=== PATIENT | female | born 1965 | race Caucasian/White ===

== ENCOUNTER 2016-08-27 16:38 | Emergency (ER) | payer MEDICAID, OTHER ==
[~2016-08-27] VITALS: Ht 167.6 cm; Wt 96.0 kg
[~2016-08-27 16:38] MED LIST: 1-ME1LIQ PO; ADVAI250I INH; ALBU8I INH; BACL10TA PO; BENZ1TAB PO; CLON1 PO; DULO1CAP3 PO; GABA300C3 PO; MIRA25TA PO; PERC7.5T13 PO; SYNT112T PO; TEMA30CA PO; TRAZ50TA12 PO; VENL-39 PO; VESI5TAB PO
[2016-08-27 16:47] VITALS: BP 139/79; PULSE 83; RESP 24; TEMP 98.4; O2SAT 94
[2016-08-27 16:53] VITALS: BP 139/79; PULSE 84; RESP 24; TEMP 98.4; O2SAT 95
[2016-08-27] MEDS ORDERED: LEVO50TA4 PO (17:07)
[2016-08-27] MEDS ORDERED: LAMO25 PO (17:07)
[2016-08-27] MEDS ORDERED: GABA300C5 PO (17:07)
[2016-08-27] MEDS ORDERED: HYDR50TA94 PO (17:07)
[2016-08-27] MEDS ORDERED: LORazepam 2 MG/ML VIAL IV PUSH ONE (17:15)
[2016-08-27] MEDS ORDERED: oxyCODONE/ACETAMINOPHEN 5 MG/325 MG TAB PO ONE (17:15)
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
[2016-08-27 17:41] LABS: AUTOMATED NEUTROPHIL # 6.5 TH/MM3 (1.8-7.7); BASOPHIL # 0.1 TH/MM3 (0-0.2); BASOPHIL % 0.7 % (0.0-2.0); EOSINOPHIL # 0.2 TH/MM3 (0-0.4); EOSINOPHIL % 1.6 % (0.0-4.0); HEMATOCRIT 38.3 % (35.0-46.0); HEMO FLAGS DIFF FINAL; LYMPH % 37.1 % (9.0-44.0); LYMPHOCYTE # 4.6 TH/MM3 (1.0-4.8); MEAN CELL VOLUME 69.5 FL (80.0-100.0); MEAN CORPUSCULAR HEMOGLOBIN 22.5 PG (27.0-34.0); MEAN CORPUSCULAR HGB CONC 32.4 % (32.0-36.0); NEUT % 52.6 % (16.0-70.0); PLATELET COUNT 377 TH/MM3 (150-450); WHITE BLOOD COUNT 12.3 TH/MM3 (4.0-11.0)
[2016-08-27 17:45] LABS: ALT (GPT) 38 U/L (10-53); ANION GAP 7 MEQ/L (5-15); AST (GOT) 30 U/L (15-37); BICARBONATE 30.9 MEQ/L (21.0-32.0); BLOOD UREA NITROGEN 16 MG/DL (7-18); CHLORIDE 99 MEQ/L (98-107); GLOMERULAR FILTRATION RATE 51 ML/MIN (>89); POTASSIUM 4.2 MEQ/L (3.5-5.1); SODIUM (NA) 137 MEQ/L (136-145)
[2016-08-27 17:55] LABS: ALKALINE PHOSPHATASE 114 U/L (45-117); TOTAL BILIRUBIN ADULT 0.3 MG/DL (0.2-1.0)
[2016-08-27 18:10] LABS: ACETAMINOPHEN LESS THAN 2.0 MCG/ML (10.0-30.0)
[2016-08-27 18:22] LABS: BLOOD, URINE TRACE (NEG); COMMENT (UR) CULT NOT INDICATED; CULTURE IF INDICATED CULT NOT INDICATED; GLUCOSE,URINE NEG (NEG); KETONE, URINE NEG (NEG); NITRITE,URINE NEG (NEG); PH, URINE 5.5 (5.0-8.5); SQUAMOUS EPITHELIAL CELL URINE 3 /hpf (0-5); URINE COLOR YELLOW (YELLW/STRAW)
[2016-08-27 18:29] LABS: AMPHETAMINE, URINE NEG (NEG); BARBITURATES, URINE NEG (NEG); COCAINE, URINE POS (NEG)
[2016-08-27 19:04] VITALS: BP 132/81; PULSE 80; RESP 20; O2SAT 95
[2016-08-27 19:44] VITALS: BP 142/81; PULSE 79; RESP 20; TEMP 99.4; O2SAT 97
[2016-08-27 23:01] VITALS: BP 116/66; PULSE 70; RESP 16; O2SAT 98
[2016-08-28 02:17] VITALS: BP 128/73; PULSE 69; RESP 20
[2016-08-28 06:37] VITALS: BP 135/71; PULSE 75; RESP 18
[2016-08-28] MEDS ORDERED: LORazepam 1 MG TAB PO ONE (08:30)
[2016-08-28] MEDS ORDERED: GABAPENTIN 300 MG CAP PO ONE (08:30)
[2016-08-28] MEDS ORDERED: oxyCODONE/ACETAMINOPHEN 5 MG/325 MG TAB PO ONE (08:30)
[2016-08-28 10:10] VITALS: BP 122/78; PULSE 71; RESP 18; O2SAT 98
[2016-08-28] MEDS ORDERED: HYDR-3366 PO (11:19)
[2016-08-28] MEDS ORDERED: LORA-474 PO (11:19)
[2016-08-28] MEDS ORDERED: GABA300C5 PO (11:19)
[2016-08-28] MEDS ORDERED: SOMA350T PO (11:20)
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
== END 2016-08-28 12:40 | disposition home or self-care (01) ==
LOC: NEPC 16:38 → NEPJ 08-28 12:40
DX: F25.9 Schizoaffective disorder, unspecified (principal); F41.9 Anxiety disorder, unspecified; G89.29 Other chronic pain; E66.9 Obesity, unspecified; F31.89 Other bipolar disorder; J44.9 Chronic obstructive pulmonary disease, unspecified; E03.9 Hypothyroidism, unspecified; I10 Essential (primary) hypertension; J45.909 Unspecified asthma, uncomplicated
CPT/HCPCS: 80053; 80307; 81001; 83690; 84443; 85025; 96374; 99284; J2060

== ENCOUNTER 2017-02-23 16:48 | Emergency (ER) | payer MEDICAID, OTHER ==
[~2017-02-23] VITALS: Ht 167.6 cm; Wt 113.0 kg
[~2017-02-23 16:48] MED LIST changes: -1-ME1LIQ PO; -ADVAI250I INH; -ALBU8I INH; -BACL10TA PO; -BENZ1TAB PO; -CLON1 PO; -GABA300C3 PO; +GABA300C5 PO; +HYDR-3366 PO; +HYDR50TA94 PO; +LAMO25 PO; +LEVO50TA4 PO; +LORA-474 PO; -MIRA25TA PO; -PERC7.5T13 PO; +SOMA350T PO; -SYNT112T PO; -TEMA30CA PO; -VENL-39 PO; -VESI5TAB PO
[2017-02-23 16:59] VITALS: BP 114/70; PULSE 82; RESP 18; TEMP 98.5; O2SAT 95
[2017-02-23] MEDS ORDERED: CYMB60CA PO (17:06)
[2017-02-23] MEDS ORDERED: CLON1 PO ×2 (17:06)
[2017-02-23 17:12] VITALS: BP 109/73; PULSE 80; RESP 20; O2SAT 99
--- NOTE | 2017-02-23 17:33 | PD ---
HPI . Moreno Act Chief Complaint: Psychiatric Symptoms Time Seen by Provider: 17:03 Travel History International Travel<30 days: No Contact w/Intl Traveler<30days: No Traveled to known affect area: No History of Present Illness HPI This patient presents to us by EVAC as a Moreno Act. The Moreno Act states that she has told couple of different people that she is depressed and that she will kill herself if she does not get her pain medication. The patient reports that she is status post a hip replacement on January 18. She was prescribed pain medication following the hip replacement. She has reportedly been in a rehabilitation facility until a couple of weeks ago. His chart from the rehabilitation facility with prescriptions for pain medication and psychiatric medication. The patient reports that she is out of her pain medication. She describes her pain as severe. It is exacerbated by movement of her hip. PFSH Past Medical History Hx Anticoagulant Therapy: Yes Arthritis: Yes Asthma: Yes Autoimmune Disease: No Blood Disorders: No Bipolar Disorder: Yes Anxiety: Yes Depression: Yes Heart Rhythm Problems: No Cancer: No Cardiovascular Problems: Yes High Cholesterol: No Chemotherapy: No Chest Pain: No Congestive Heart Failure: No COPD: Yes Cerebrovascular Accident: No Diabetes: No Diminished Hearing: No Endocrine: Yes (HYPOTHROIDISM) Gastrointestinal Disorders: Yes (C/O STOMACH ULCER) GERD: No Glaucoma: No Genitourinary: Yes (INCONTINENCE) Headaches: No Hepatitis: Yes (C) Hiatal Hernia: No Hypertension: Yes Immune Disorder: No Implanted Vascular Access Dvce: No Insomnia: Yes Kidney Stones: No Musculoskeletal: Yes (LOWER BACK PAIN) Neurologic: No Psychiatric: Yes (Schizoaffective Disorder) Reproductive: No Respiratory: Yes Immunizations Current: Yes Migraines: No Myocardial Infarction: No Radiation Therapy: No Renal Failure: No Schizophrenia: Yes Seizures: No Sickle Cell Disease: No Sleep Apnea: No Thyroid Disease: Yes (HYPO) Ulcer: Yes (STOMACH ULCER) Tetanus Vaccination: > 5 Years Influenza Vaccination: No ?: Not Menopausal: Yes : 1 Para: 1 Miscarriage: 0 : 0 Dilation and Curettage (D&C): Yes Past Surgical History Abdominal Surgery: No AICD: No Appendectomy: No Arteriovenous Shunt: No Cardiac Surgery: No Cholecystectomy: No Ear Surgery: No Endocrine Surgery: No Eye Surgery: No Genitourinary Surgery: No Gynecologic Surgery: No Insulin Pump: No Joint Replacement: No Neurologic Surgery: No Oral Surgery: No Pacemaker: No Thoracic Surgery: No Other Surgery: Yes (HX OF CHIN AND NOSE IMPLANTS, BOTH KNEES REPLACEMENT) Social History Alcohol Use: No Tobacco Use: Yes (2 PPD) Substance Use: Yes Allergies-Medications (Allergen,Severity, Reaction): Coded Allergies: haloperidol (Unverified Allergy, Severe, PARADOXICAL EFFECT, 02/23/17) risperidone (Unverified Allergy, Severe, PARADOXICAL EFFECT, 02/23/17) thiothixene (Unverified Allergy, Severe, PARADOXICAL EFFECT, 02/23/17) trazodone (Unverified Allergy, Unknown, 02/23/17) Reported Meds & Prescriptions Reported Meds & Active Scripts Active Soma (Carisoprodol) 350 Mg Tab 350 Mg PO TID PRN Gabapentin 300 Mg Cap 300 Mg PO TID Duloxetine DR (Duloxetine HCl) 60 Mg Capdr 60 Mg PO DAILY [address] (Duloxetine HCl) 60 Mg Capdr 60 Mg PO DAILY Klonopin (Clonazepam) 1 Mg Tab 1 Mg PO TID Klonopin (Clonazepam) 1 Mg Tab 1 Mg PO BID Hydroxyzine HCl 50 Mg Tab 50 Mg PO TID Levothyroxine (Levothyroxine Sodium) 50 Mcg Tab 50 Mcg PO DAILY Lamictal (Lamotrigine) 25 Mg Tab 25 Mg PO BID Review of Systems Except as stated in HPI: all other systems reviewed are Neg Musculoskeletal: Positive: Arthralgias Psychiatric: Positive: Depression, Suicidal Ideations, Substance Abuse Physical Exam Narrative GENERAL: Slurred speech. Lateral and belligerent. Demanding pain medication on multiple occasions. She was found to be hiding a bottle of mixed pills in her diaper. SKIN: Warm and dry. She has a well-healed surgical scar on the right hip with no signs of infection. HEAD: Normocephalic/atraumatic. EYES: Pupils are equal. Extraocular movements are intact. NECK: Normal range of motion. CARDIOVASCULAR: Regular rate and rhythm. RESPIRATORY: Nonlabored respirations. MUSCULOSKELETAL: Atraumatic. There is no resistance to log rolling of the hip. NEUROLOGICAL: Nonfocal. PSYCHIATRIC: Angry. Belligerent. Probably intoxicated. Data Data Last Documented VS Vital Signs Date Time Temp Pulse Resp B/P (MAP) Pulse Ox O2 Delivery O2 Flow Rate FiO2 02/23/17 17:12 80 20 109/73 (85) 99 Room Air 02/23/17 16:59 98.5 Orders Orders Complete Blood Count With Diff (02/23/17 17:04) Comprehensive Metabolic Panel (02/23/17 17:04) Cath For Specimen (02/23/17 17:04) Psych Screen (02/23/17 17:04) Drug Screen, Random Urine (02/23/17 17:04) Alcohol (Ethanol) (02/23/17 17:04) Salicylates (Aspirin) (02/23/17 17:04) Tylenol (Acetaminophen) (02/23/17 17:04) Labs Laboratory Tests Test 02/23/17 17:05 White Blood Count 10.4 TH/MM3 Red Blood Count 4.31 MIL/MM3 Hemoglobin 10.4 GM/DL Hematocrit 32.2 % Mean Corpuscular Volume 74.6 FL Mean Corpuscular Hemoglobin 24.2 PG Mean Corpuscular Hemoglobin Concent 32.4 % Red Cell Distribution Width 17.0 % Platelet Count 354 TH/MM3 Mean Platelet Volume 8.0 FL Neutrophils (%) (Auto) 52.7 % Lymphocytes (%) (Auto) 35.1 % Monocytes (%) (Auto) 8.9 % Eosinophils (%) (Auto) 2.8 % Basophils (%) (Auto) 0.5 % Neutrophils # (Auto) 5.5 TH/MM3 Lymphocytes # (Auto) 3.6 TH/MM3 Monocytes # (Auto) 0.9 TH/MM3 Eosinophils # (Auto) 0.3 TH/MM3 Basophils # (Auto) 0.1 TH/MM3 CBC Comment DIFF FINAL Differential Comment Blood Urea Nitrogen 15 MG/DL Creatinine 1.03 MG/DL Random Glucose 91 MG/DL Total Protein 7.0 GM/DL Albumin 3.5 GM/DL Calcium Level 9.1 MG/DL Alkaline Phosphatase 104 U/L Aspartate Amino Transf (AST/SGOT) 21 U/L Alanine Aminotransferase (ALT/SGPT) 28 U/L Total Bilirubin 0.3 MG/DL Sodium Level 139 MEQ/L Potassium Level 3.1 MEQ/L Chloride Level 99 MEQ/L Carbon Dioxide Level 36.8 MEQ/L Anion Gap 3 MEQ/L Estimat Glomerular Filtration Rate 56 ML/MIN Salicylates Level 6.8 MG/DL Acetaminophen Level LESS THAN 2.0 MCG/ML Ethyl Alcohol Level LESS THAN 3 MG/DL MDM Medical Decision Making Medical Screen Exam Complete: Yes Emergency Medical Condition: Yes Differential Diagnosis Differential diagnosis includes but is not limited to depression with suicidal gesture, suicide attempt, suicidal ideation, attention seeking behavior. Narrative Course This patient presents to us as a Moreno Act. She is reportedly suicidal. She was found to be hiding a mixed bottle of medication in her diaper. She has reportedly been drinking vodka. She is belligerent and loud. Medical clearance labs have been drawn. I will follow-up on them. However, this patient does not have any apparent acute medical problems. Her problems appear to be psychiatric. She is disruptive to the department. She will be transported to the [facility]. This patient has been evaluated by the psych screening nurse practitioner. The Moreno Act has been lifted. The patient will be discharged to home. Diagnosis Primary Impression: Encounter for medical screening examination Disposition: 01 DISCHARGE HOME Condition: Stable Maddie Willett MD Feb 23, 2017 17:33
[2017-02-23 17:46] LABS: AUTOMATED NEUTROPHIL # 5.5 TH/MM3 (1.8-7.7); BASOPHIL # 0.1 TH/MM3 (0-0.2); BASOPHIL % 0.5 % (0.0-2.0); EOSINOPHIL # 0.3 TH/MM3 (0-0.4); EOSINOPHIL % 2.8 % (0.0-4.0); HEMATOCRIT 32.2 % (35.0-46.0); HEMOGLOBIN 10.4 GM/DL (11.6-15.3); LYMPH % 35.1 % (9.0-44.0); LYMPHOCYTE # 3.6 TH/MM3 (1.0-4.8); MEAN CELL VOLUME 74.6 FL (80.0-100.0); MEAN CORPUSCULAR HEMOGLOBIN 24.2 PG (27.0-34.0); MEAN CORPUSCULAR HGB CONC 32.4 % (32.0-36.0); MONO % 8.9 % (0.0-8.0); MONOCYTE # 0.9 TH/MM3 (0-0.9); NEUT % 52.7 % (16.0-70.0); PLATELET COUNT 354 TH/MM3 (150-450); RED BLOOD COUNT 4.31 MIL/MM3 (4.00-5.30); WHITE BLOOD COUNT 10.4 TH/MM3 (4.0-11.0)
[2017-02-23 18:08] LABS: ALBUMIN 3.5 GM/DL (3.4-5.0); AST (GOT) 21 U/L (15-37); BICARBONATE 36.8 MEQ/L (21.0-32.0); BLOOD UREA NITROGEN 15 MG/DL (7-18); CALCIUM 9.1 MG/DL (8.5-10.1); CHLORIDE 99 MEQ/L (98-107); CREATININE 1.03 MG/DL (0.50-1.00); GLOMERULAR FILTRATION RATE 56 ML/MIN (>89); GLUCOSE,RANDOM 91 MG/DL (74-106); SODIUM (NA) 139 MEQ/L (136-145)
[2017-02-23 18:11] LABS: ACETAMINOPHEN LESS THAN 2.0 MCG/ML (10.0-30.0); ALKALINE PHOSPHATASE 104 U/L (45-117); ALT (GPT) 28 U/L (10-53); TOTAL BILIRUBIN ADULT 0.3 MG/DL (0.2-1.0)
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
== END 2017-02-23 19:04 | disposition home or self-care (01) ==
LOC: NEPD 16:48
DX: F33.9 Major depressive disorder, recurrent, unspecified (principal); E03.9 Hypothyroidism, unspecified; F17.200 Nicotine dependence, unspecified, uncomplicated; Z79.899 Other long term (current) drug therapy
CPT/HCPCS: 80053; 80307; 85025; 99283

== ENCOUNTER 2017-03-21 11:46 | Emergency (ER) | payer MEDICAID, OTHER ==
[~2017-03-21] VITALS: Ht 167.6 cm; Wt 110.0 kg
[~2017-03-21 11:46] MED LIST changes: +CLON1 PO; +CYMB60CA PO; -HYDR-3366 PO; -LORA-474 PO; -TRAZ50TA12 PO
[2017-03-21 11:57] VITALS: BP 141/80; PULSE 73; RESP 16; TEMP 98.2; O2SAT 94
--- NOTE | 2017-03-21 12:05 | PD ---
HPI Chief Complaint: Depression Time Seen by Provider: 12:03 Travel History International Travel<30 days: No Contact w/Intl Traveler<30days: No Traveled to known affect area: No History of Present Illness HPI 51-year-old female brought in by ambulance with weakness, knee pain, and depression. Patient states she fell several weeks ago, and was given Lortab for her pain. She states she ran out of her Lortab and her primary care physician won't refill it. Now depressed and weak. She continues to have left knee pain. She denies nausea vomiting or diarrhea. She denies urinary symptoms. She denies fever or chills. She does have a psychiatric history. He was previously taking Cymbalta as well. Patient denies suicidal ideation or homicidal ideation. Patient is allergic to haloperidol, risperidone, trazodone , and thiothixene. PFSH Past Medical History Hx Anticoagulant Therapy: Yes Arthritis: Yes Asthma: Yes Autoimmune Disease: No Blood Disorders: No Bipolar Disorder: Yes Anxiety: Yes Depression: Yes Heart Rhythm Problems: No Cancer: No Cardiovascular Problems: Yes High Cholesterol: No Chemotherapy: No Chest Pain: No Congestive Heart Failure: No COPD: Yes Cerebrovascular Accident: No Diabetes: No Diminished Hearing: No Endocrine: Yes (HYPOTHROIDISM) Gastrointestinal Disorders: Yes (C/O STOMACH ULCER) GERD: No Glaucoma: No Genitourinary: Yes (INCONTINENCE) Headaches: No Hepatitis: Yes (C) Hiatal Hernia: No Hypertension: Yes Immune Disorder: No Implanted Vascular Access Dvce: No Insomnia: Yes Kidney Stones: No Musculoskeletal: Yes (LOWER BACK PAIN) Neurologic: No Psychiatric: Yes (Schizoaffective Disorder) Reproductive: No Respiratory: Yes Immunizations Current: Yes Migraines: No Myocardial Infarction: No Radiation Therapy: No Renal Failure: No Schizophrenia: Yes Seizures: No Sickle Cell Disease: No Sleep Apnea: No Thyroid Disease: Yes (HYPO) Ulcer: Yes (STOMACH ULCER) Tetanus Vaccination: > 5 Years Influenza Vaccination: Yes ?: Not Menopausal: Yes : 1 Para: 1 Miscarriage: 0 : 0 Dilation and Curettage (D&C): Yes Past Surgical History Abdominal Surgery: No AICD: No Appendectomy: No Arteriovenous Shunt: No Cardiac Surgery: No Cholecystectomy: No Ear Surgery: No Endocrine Surgery: No Eye Surgery: No Genitourinary Surgery: No Gynecologic Surgery: No Insulin Pump: No Joint Replacement: No Neurologic Surgery: No Oral Surgery: No Pacemaker: No Thoracic Surgery: No Other Surgery: Yes (HX OF CHIN AND NOSE IMPLANTS, BOTH KNEES REPLACEMENT) Social History Alcohol Use: No Tobacco Use: Yes (2 PPD) Substance Use: Yes (Hx substance abuse per records.) Allergies-Medications (Allergen,Severity, Reaction): Coded Allergies: haloperidol (Unverified Allergy, Severe, PARADOXICAL EFFECT, 02/23/17) risperidone (Unverified Allergy, Severe, PARADOXICAL EFFECT, 02/23/17) thiothixene (Unverified Allergy, Severe, PARADOXICAL EFFECT, 02/23/17) trazodone (Unverified Allergy, Unknown, 02/23/17) Reported Meds & Prescriptions Reported Meds & Active Scripts Active Soma (Carisoprodol) 350 Mg Tab 350 Mg PO TID PRN Reported Hydrocodone-Acetaminophen 5-325 mg Tab 1 Tab PO Q4H PRN Gabapentin 400 Mg Cap 400 Cap PO TID Cymbalta DR (Duloxetine HCl) 60 Mg Capdr 60 Mg PO DAILY Klonopin (Clonazepam) 1 Mg Tab 1 Mg PO TID Hydroxyzine HCl 50 Mg Tab 50 Mg PO TID Levothyroxine (Levothyroxine Sodium) 50 Mcg Tab 50 Mcg PO DAILY Lamictal (Lamotrigine) 25 Mg Tab 25 Mg PO BID Review of Systems Except as stated in HPI: all other systems reviewed are Neg General / Constitutional: No: Fever Eyes: No: Visual changes HENT: No: Headaches Cardiovascular: No: Chest Pain or Discomfort Respiratory: No: Shortness of Breath Gastrointestinal: No: Abdominal Pain Genitourinary: No: Dysuria Musculoskeletal: Positive: Arthralgias, Limited ROM, Pain Skin: No Rash Neurologic: Positive: Weakness (generalized) Psychiatric: Positive: Depression, Mood Disorder, No: Suicidal Ideations, Homicidal Ideation Endocrine: No: Polydipsia Hematologic/Lymphatic: No: Easy Bruising Physical Exam Narrative GENERAL: Patient appears somewhat histrionic and visibly depressed and tearful. SKIN: Warm and dry. Normal color. Normal turgor. HEAD: Atraumatic. Normocephalic. EYES: Pupils equal and round. No scleral icterus. No injection or drainage. ENT: No nasal bleeding or discharge. Mucous membranes pink and moist. Chest clear. Airway is patent. NECK: Trachea midline. Supple and nontender. CARDIOVASCULAR: Regular rate and rhythm. RESPIRATORY: No accessory muscle use. Clear to auscultation. Breath sounds equal bilaterally. GASTROINTESTINAL: Abdomen soft, non-tender, nondistended. Hepatic and splenic margins not palpable. MUSCULOSKELETAL: Extremities without clubbing, cyanosis, or edema. No obvious deformities. Patient complains of knee pain with normal exam. NEUROLOGICAL: Awake and alert. No obvious cranial nerve deficits. Motor grossly within normal limits. Five out of 5 muscle strength in the arms and legs. Normal speech. PSYCHIATRIC: Appropriate mood and affect; insight and judgment normal. Data Data Last Documented VS Vital Signs Date Time Temp Pulse Resp B/P (MAP) Pulse Ox O2 Delivery O2 Flow Rate FiO2 03/21/17 14:00 81 16 123/74 (90) 95 Room Air 03/21/17 11:57 98.2 Orders Orders Complete Blood Count With Diff (03/21/17 12:05) Comprehensive Metabolic Panel (03/21/17 12:05) Urinalysis - C+S If Indicated (03/21/17 12:05) Psych Screen (03/21/17 12:05) Drug Screen, Random Urine (03/21/17 12:05) Iv Access Insert/Monitor (03/21/17 12:10) Ecg Monitoring (03/21/17 12:10) Oximetry (03/21/17 12:10) Ondansetron Inj (Zofran Inj) (03/21/17 12:15) Sodium Chlor 0.9% 1000 Ml Inj (Ns 1000 M (03/21/17 12:10) Sodium Chloride 0.9% Flush (Ns Flush) (03/21/17 12:15) Ketorolac Inj (Toradol Inj) (03/21/17 12:15) Electrocardiogram (03/21/17 12:10) Magnesium (Mg) (03/21/17 12:10) Ckmb (Isoenzyme) Profile (03/21/17 12:10) Troponin I (03/21/17 12:10) Act Partial Throm Time (Ptt) (03/21/17 12:10) Prothrombin Time / Inr (Pt) (03/21/17 12:10) Potassium Chloride (Kcl) (03/21/17 14:30) Labs Laboratory Tests Test 03/21/17 12:10 03/21/17 12:55 03/21/17 14:30 White Blood Count 8.6 TH/MM3 Red Blood Count 4.80 MIL/MM3 Hemoglobin 10.9 GM/DL Hematocrit 35.4 % Mean Corpuscular Volume 73.7 FL Mean Corpuscular Hemoglobin 22.7 PG Mean Corpuscular Hemoglobin Concent 30.8 % Red Cell Distribution Width 17.3 % Platelet Count 312 TH/MM3 Mean Platelet Volume 8.0 FL Neutrophils (%) (Auto) 42.8 % Lymphocytes (%) (Auto) 43.5 % Monocytes (%) (Auto) 8.9 % Eosinophils (%) (Auto) 3.9 % Basophils (%) (Auto) 0.9 % Neutrophils # (Auto) 3.7 TH/MM3 Lymphocytes # (Auto) 3.7 TH/MM3 Monocytes # (Auto) 0.8 TH/MM3 Eosinophils # (Auto) 0.3 TH/MM3 Basophils # (Auto) 0.1 TH/MM3 CBC Comment DIFF FINAL Differential Comment Blood Urea Nitrogen 13 MG/DL Creatinine 0.93 MG/DL Random Glucose 88 MG/DL Total Protein 7.1 GM/DL Albumin 3.6 GM/DL Calcium Level 8.8 MG/DL Alkaline Phosphatase 119 U/L Aspartate Amino Transf (AST/SGOT) 28 U/L Alanine Aminotransferase (ALT/SGPT) 33 U/L Total Bilirubin 0.2 MG/DL Sodium Level 141 MEQ/L Potassium Level 3.2 MEQ/L Chloride Level 103 MEQ/L Carbon Dioxide Level 33.6 MEQ/L Anion Gap 4 MEQ/L Estimat Glomerular Filtration Rate 63 ML/MIN Prothrombin Time 10.2 SEC Prothromb Time International Ratio 1.0 RATIO Activated Partial Thromboplast Time 32.6 SEC Urine Color YELLOW Urine Turbidity CLEAR Urine pH 5.5 Urine Specific Mcqueeney 1.010 Urine Protein NEG mg/dL Urine Glucose (UA) NEG mg/dL Urine Ketones NEG mg/dL Urine Occult Blood NEG Urine Nitrite NEG Urine Bilirubin NEG Urine Urobilinogen LESS THAN 2.0 MG/DL Urine Leukocyte Esterase NEG Urine RBC LESS THAN 1 /hpf Urine WBC 1 /hpf Urine Squamous Epithelial Cells 1 /hpf Urine Bacteria RARE /hpf Urine Mucus FEW /lpf Microscopic Urinalysis Comment CULT NOT INDICATED Urine Opiates Screen NEG Urine Barbiturates Screen NEG Urine Amphetamines Screen NEG Urine Benzodiazepines Screen POS Urine Cocaine Screen NEG Urine Cannabinoids Screen POS [facility] Medical Decision Making Medical Screen Exam Complete: Yes Emergency Medical Condition: Yes Medical Record Reviewed: Yes Differential Diagnosis Knee pain. Weakness. Mood disorder. Depression. Electrolyte imbalance. Cardiac syndrome. Narrative Course I feel the patient's symptoms are mainly psychiatric in nature, however we will do a workup to rule out medical issues. Drug-seeking behavior certainly is warranted as well. Labs ordered including CBC, CMP, cardiac panel, coags. And urinalysis. Chest x-ray and EKG are ordered. EKG shows normal sinus rhythm without ST changes. Chest x-ray is unremarkable. Labs show mild anemia with hemoglobin of 10.9. Normal coagulation studies. Chemistries unremarkable except for potassium 3.2. Carbon dioxide 33.6, anion gap of 4, normal BM and creatinine. Alkaline phosphatase of 119. Patient is given 30 mg Toradol IV. Patient is given 20 mEq of potassium by mouth. Psychiatric evaluation is ordered. Psychiatric nursing staff comes to see the patient, and agrees the patient is depressed, but does not feel she is acutely suicidal. The patient tends to focus on her chronic pain issues. She continues to request pain medication during her interview by psychiatric services. Patient was discussed with psychiatrist who stated that she could stay to see him in the morning on a voluntary basis. Medically the patient does not warrant admission. Discussed with the patient that she needs to follow-up with pain management, and psychiatrist. I discussed the patient with Dr. Clark and he is willing to write for 24 hours worth of medication. Patient was given Lortab 5/325 one tab every 6 hours #8. Patient also given clonazepam 1 mg, 1 tab daily at bedtime. #4. Diagnosis Primary Impression: Chronic pain Qualified Codes: G89.4 - Chronic pain syndrome Additional Impression: Major depression, recurrent, chronic Referrals: Pain Management Primary Care Physician Psychiatrist Patient Instructions: Chronic Back Pain (ED), General Instructions Additional Instructions: Patient was discussed with psychiatrist who stated that she could stay to see him in the morning on a voluntary basis. Medically the patient does not warrant admission. Discussed with the patient that she needs to follow-up with pain management, and psychiatrist. I discussed the patient with Dr. Clark and he is willing to write for 24 hours worth of medication. Patient was given Lortab 5/325 one tab every 6 hours #8. Patient also given clonazepam 1 mg, 1 tab daily at bedtime. #4. Med/Other Pt SpecificInfo: Prescription(s) given Disposition: 01 DISCHARGE HOME Condition: Stable Merrick Cox Mar 21, 2017 12:04
[2017-03-21] MEDS ORDERED: SODIUM CHLOR 0.9% 1000 ML INJ 1,000 ML IV SCH (12:10)
[2017-03-21 12:13] VITALS: RESP 16; O2SAT 98
[2017-03-21] MEDS ORDERED: SODIUM CHLORIDE 0.9% FLUSH 10 ML FLUSH IV FLUSH PRN (12:15)
[2017-03-21] MEDS ORDERED: KETOROLAC TROMETHAMINE 30 MG/ML (IVP) VIAL IVP ONE (12:15)
[2017-03-21] MEDS ORDERED: ONDANSETRON HCL 4 MG/2 ML VIAL IVP ONE (12:15)
[2017-03-21 12:23] LABS: AUTOMATED NEUTROPHIL # 3.7 TH/MM3 (1.8-7.7); BASOPHIL # 0.1 TH/MM3 (0-0.2); BASOPHIL % 0.9 % (0.0-2.0); EOSINOPHIL # 0.3 TH/MM3 (0-0.4); EOSINOPHIL % 3.9 % (0.0-4.0); HEMATOCRIT 35.4 % (35.0-46.0); HEMOGLOBIN 10.9 GM/DL (11.6-15.3); LYMPH % 43.5 % (9.0-44.0); LYMPHOCYTE # 3.7 TH/MM3 (1.0-4.8); MEAN CELL VOLUME 73.7 FL (80.0-100.0); MEAN CORPUSCULAR HEMOGLOBIN 22.7 PG (27.0-34.0); MEAN CORPUSCULAR HGB CONC 30.8 % (32.0-36.0); MONO % 8.9 % (0.0-8.0); MONOCYTE # 0.8 TH/MM3 (0-0.9); NEUT % 42.8 % (16.0-70.0); PLATELET COUNT 312 TH/MM3 (150-450); RED CELL DISTRIBUTION WIDTH 17.3 % (11.6-17.2); WHITE BLOOD COUNT 8.6 TH/MM3 (4.0-11.0)
[2017-03-21] MEDS ORDERED: GABA400C5 PO (12:28)
[2017-03-21] MEDS ORDERED: HYDR-3516 PO ×2 (12:28→16:06)
[2017-03-21 12:40] LABS: ALBUMIN 3.6 GM/DL (3.4-5.0); AST (GOT) 28 U/L (15-37); BICARBONATE 33.6 MEQ/L (21.0-32.0); BLOOD UREA NITROGEN 13 MG/DL (7-18); CALCIUM 8.8 MG/DL (8.5-10.1); CHLORIDE 103 MEQ/L (98-107); CREATININE 0.93 MG/DL (0.50-1.00); GLOMERULAR FILTRATION RATE 63 ML/MIN (>89); GLUCOSE,RANDOM 88 MG/DL (74-106); SODIUM (NA) 141 MEQ/L (136-145)
[2017-03-21 12:44] LABS: ALKALINE PHOSPHATASE 119 U/L (45-117); ALT (GPT) 33 U/L (10-53); TOTAL BILIRUBIN ADULT 0.2 MG/DL (0.2-1.0); TOTAL PROTEIN 7.1 GM/DL (6.4-8.2)
[2017-03-21 13:26] LABS: PROTHROMBIN TIME - PATIENT 10.2 SEC (9.8-11.6)
[2017-03-21 14:00] VITALS: BP 123/74; PULSE 81; RESP 16; O2SAT 95
[2017-03-21] MEDS ORDERED: POTASSIUM CHLORIDE 20 MEQ CONTROLLED RELEASE TAB PO ONE (14:30)
[2017-03-21 15:16] LABS: BACTERIA, URINE RARE /hpf; BILIRUBIN, URINE NEG (NEG); BLOOD, URINE NEG (NEG); GLUCOSE,URINE NEG (NEG); KETONE, URINE NEG (NEG); MUCUS URINE FEW /lpf (OCC); NITRITE,URINE NEG (NEG); PH, URINE 5.5 (5.0-8.5); SQUAMOUS EPITHELIAL CELL URINE 1 /hpf (0-5); URINE COLOR YELLOW (YELLW/STRAW); URINE LEUKOCYTE ESTERASE NEG (NEG)
[2017-03-21] MEDS ORDERED: CLON1TAB PO (16:06)
[2017-03-21 23:19] LABS: MAGNESIUM 2.1 MG/DL (1.5-2.5)
[2017-03-21 23:21] LABS: TROPONIN I LESS THAN 0.02 NG/ML (0.02-0.05)
--- NOTE | 2017-03-22 19:40 | EKG ---
Date Performed: 03/21/2017 Time Performed: 12:23:56 PTAGE: 51 years EKG: Sinus rhythm NORMAL ECG PREVIOUS TRACING : 02/29/2012 08.20 Since previous tracing, no significant change noted DOCTOR: Nadia Espinoza Interpretating Date/Time 03/22/2017 19:38:35
== END 2017-03-21 18:27 | disposition home or self-care (01) ==
LOC: NEPD 11:46
DX: G89.29 Other chronic pain (principal); D64.9 Anemia, unspecified; R53.1 Weakness; M25.562 Pain in left knee; F31.9 Bipolar disorder, unspecified; J44.9 Chronic obstructive pulmonary disease, unspecified; E03.9 Hypothyroidism, unspecified; I10 Essential (primary) hypertension; F25.9 Schizoaffective disorder, unspecified
CPT/HCPCS: 80053; 80307; 81001; 82550; 82552; 83735; 84484; 85025; 85610; 85730; 93005; 96361; 96374; 96375; 99284; J1885; J2405; J7030

== ENCOUNTER 2017-05-04 17:49 | Emergency (ER) | payer MEDICAID ==
[~2017-05-04 17:49] MED LIST changes: +CLON1TAB PO; -DULO1CAP3 PO; -GABA300C5 PO; +GABA400C5 PO; +HYDR-3516 PO
[2017-05-04 18:00] VITALS: BP 159/83; PULSE 74; RESP 20; TEMP 98.1; O2SAT 99
--- NOTE | 2017-05-04 19:13 | RADRPT ---
EXAM DATE/TIME: 05/04/2017 18:22 [facility] COMPARISON: No previous studies available for comparison. INDICATIONS : Fall right hip pain. MEDICAL HISTORY : None. SURGICAL HISTORY : Total right hip replacement. ENCOUNTER: Initial ACUITY: 1 day PAIN SCORE: 6/10 LOCATION: Right hip FINDINGS: Frontal view of the pelvis and 2 views of the right hip demonstrate the bony pelvic ring to be grossl y intact. There is a noncemented total hip arthroplasty on the right side with normal configuration to the bone/metal interspace. Heterotopic ossification is present about the lateral aspect of the ac etabular component. The lateral aspect of the acetabular component protrudes almost 2 cm lateral to the acetabulum some fullness of uncertain significance. Advanced degenerative changes at the L4-5 in terspace. CONCLUSION: 1. The bony pelvic ring is intact no definite fracture seen. 2. Right total hip arthroplasty without evidence of dislocation or fracture. The acetabular componen t protrudes lateral to the acetabulum 2 cm and there is some associated heterotopic ossification. Th is is of uncertain significance and there are no prior conventional radiographs of the right hip to d etermine whether this is a new finding or not. Ross Brown MD on May 04, 2017 at 19:09 Board Certified Radiologist. This report was verified electronically.
--- NOTE | 2017-05-04 20:04 | RADRPT ---
EXAM DATE/TIME: 05/04/2017 19:04 [facility] COMPARISON: US LEG RIGHT VENOUS DOPPLER, November 22, 2009, 17:25. INDICATIONS : Right leg swelling. MEDICAL HISTORY : Hypothyroidism. Hypertension. Chronic obstructive pulmonary disease. Glasses. Dentures. Dizziness. Anticoagulant therapy. Asthma. Ulcer. Ovarian cysts. Arthritis. Schizophrenia. Depression. Anxiety. Substance use. Hepatitis C. SURGICAL HISTORY : Dilation and curettage. Right knee surgery. ENCOUNTER: Subsequent ACUITY: 2 day PAIN SCORE: 3/10 LOCATION: Right leg. TECHNIQUE: Venous ultrasound of the leg was performed from the inguinal ligament to the proximal calf. Real-michel e, color Doppler and spectral tracing, compression and augmentation techniques were used. FINDINGS: There is normal compressibility of the deep venous system from the inguinal region to the proximal ca lf. No echogenic clot is seen in the lumen of the common femoral, femoral, popliteal, and posterior tibial veins. There is a normal response of the venous system to proximal and distal augmentation an d respiration. CONCLUSION: 1. Negative for right lower extremity DVT. Ross Brown MD on May 04, 2017 at 20:02 Board Certified Radiologist. This report was verified electronically.
[2017-05-04 20:26] LABS: AUTOMATED NEUTROPHIL # 4.4 TH/MM3 (1.8-7.7); BASOPHIL # 0.1 TH/MM3 (0-0.2); BASOPHIL % 0.6 % (0.0-2.0); EOSINOPHIL # 0.3 TH/MM3 (0-0.4); EOSINOPHIL % 3.1 % (0.0-4.0); HEMATOCRIT 37.9 % (35.0-46.0); HEMOGLOBIN 12.2 GM/DL (11.6-15.3); LYMPH % 48.4 % (9.0-44.0); LYMPHOCYTE # 5.4 TH/MM3 (1.0-4.8); MEAN CELL VOLUME 70.9 FL (80.0-100.0); MEAN CORPUSCULAR HEMOGLOBIN 22.7 PG (27.0-34.0); MEAN PLATELET VOLUME 7.8 FL (7.0-11.0); MONOCYTE # 0.9 TH/MM3 (0-0.9); NEUT % 39.9 % (16.0-70.0); PLATELET COUNT 334 TH/MM3 (150-450); RED BLOOD COUNT 5.35 MIL/MM3 (4.00-5.30); RED CELL DISTRIBUTION WIDTH 18.6 % (11.6-17.2); WHITE BLOOD COUNT 11.1 TH/MM3 (4.0-11.0)
[2017-05-04 20:58] LABS: BICARBONATE 32.2 MEQ/L (21.0-32.0); CREATININE 0.99 MG/DL (0.50-1.00)
[2017-05-04 21:33] LABS: BANDS 1 % (0-6); BASOPHILS 1 % (0-2); LYMPHOCYTES 37 % (9-44); MONOCYTES 4 % (0-8); NEUTROPHIL # MANUAL DIFF 6.1 TH/MM3 (1.8-7.7); POLYS (SEG NEUTROPHILS) 54 % (16-70)
[2017-05-04 21:34] LABS: OVALOCYTES 1+ (NORMAL)
[2017-05-04] MEDS ORDERED: LIDO1ADH4 TP (22:34)
--- NOTE | 2017-05-04 22:38 | PD ---
HPI Chief Complaint: Edema Time Seen by Provider: 22:17 Travel History International Travel<30 days: No Contact w/Intl Traveler<30days: No Traveled to known affect area: No History of Present Illness HPI 52-year-old white female presents emergency department with complains of acute exacerbation of her chronic back pain with right sciatica. She states that she is slipped and fell last evening injuring her right hip and back. She also states that she has noticed some swelling in her right leg. Patient has history of long-term opiate dependency. She was recently discharged from inpatient psych. She has not followed up with her orthopedist or primary care doctor. Patient is requesting pain medications. She denies any fever chills. No nausea vomiting. No abdominal pain or urinary symptoms. Symptoms are moderate. Worse with movement. Pain is improved with opiates. PFSH Past Medical History Hx Anticoagulant Therapy: Yes Arthritis: Yes Asthma: Yes Autoimmune Disease: No Blood Disorders: No Bipolar Disorder: Yes Anxiety: Yes Depression: Yes Heart Rhythm Problems: No Cancer: No Cardiovascular Problems: Yes High Cholesterol: No Chemotherapy: No Chest Pain: No Congestive Heart Failure: No COPD: Yes Cerebrovascular Accident: No Diabetes: No Diminished Hearing: No Endocrine: Yes (HYPOTHROIDISM) Gastrointestinal Disorders: Yes GERD: No Glaucoma: No Genitourinary: Yes (INCONTINENCE) Headaches: No Hepatitis: Yes (C) Hiatal Hernia: No Hypertension: Yes Immune Disorder: No Implanted Vascular Access Dvce: No Insomnia: Yes Kidney Stones: No Musculoskeletal: Yes (LOWER BACK PAIN) Neurologic: No Psychiatric: Yes (Schizoaffective Disorder) Reproductive: No Respiratory: Yes Immunizations Current: Yes Migraines: No Myocardial Infarction: No Radiation Therapy: No Renal Failure: No Schizophrenia: Yes Seizures: No Sickle Cell Disease: No Sleep Apnea: No Thyroid Disease: Yes (HYPO) Ulcer: Yes (STOMACH) ?: Not Menopausal: Yes : 1 Para: 1 Miscarriage: 0 : 0 Dilation and Curettage (D&C): Yes Past Surgical History Abdominal Surgery: No AICD: No Appendectomy: No Arteriovenous Shunt: No Cardiac Surgery: No Cholecystectomy: No Ear Surgery: No Endocrine Surgery: No Eye Surgery: No Genitourinary Surgery: No Gynecologic Surgery: No Insulin Pump: No Joint Replacement: No Neurologic Surgery: No Oral Surgery: No Pacemaker: No Thoracic Surgery: No Other Surgery: Yes (HX OF CHIN AND NOSE IMPLANTS, BOTH KNEES REPLACEMENT) Social History Alcohol Use: No Tobacco Use: Yes (2 PPD) Substance Use: Yes (See records.) Allergies-Medications (Allergen,Severity, Reaction): Coded Allergies: haloperidol (Unverified Allergy, Severe, PARADOXICAL EFFECT, 05/04/17) risperidone (Unverified Allergy, Severe, PARADOXICAL EFFECT, 05/04/17) thiothixene (Unverified Allergy, Severe, PARADOXICAL EFFECT, 05/04/17) trazodone (Unverified Allergy, Unknown, 05/04/17) Reported Meds & Prescriptions Reported Meds & Active Scripts Active Lidoderm (Lidocaine) 5 % Adh..patch 1 Patch TP DAILY Clonazepam 1 Mg Tab 1 Mg PO HS Reported Gabapentin 400 Mg Cap 400 Cap PO TID Cymbalta DR (Duloxetine HCl) 60 Mg Capdr 60 Mg PO DAILY Klonopin (Clonazepam) 1 Mg Tab 1 Mg PO TID Hydroxyzine HCl 50 Mg Tab 50 Mg PO TID Levothyroxine (Levothyroxine Sodium) 50 Mcg Tab 50 Mcg PO DAILY Lamictal (Lamotrigine) 25 Mg Tab 25 Mg PO BID Review of Systems Except as stated in HPI: all other systems reviewed are Neg Physical Exam Narrative GENERAL: Well-developed, well-nourished in no apparent distress. Nontoxic appearing. HEAD: Normocephalic, atraumatic. EYES: Pupils equal round and reactive. Extraocular motions intact. No scleral icterus. No injection or drainage. ENT: Nose clear. Throat without erythema, tonsillar hypertrophy or exudate. Uvula midline. Airway patent. NECK: Trachea midline. Supple, nontender, moves head freely. No central bony tenderness or spasm. CARDIOVASCULAR: Regular rate and rhythm without murmurs, gallops, or rubs. RESPIRATORY: Clear to auscultation. Breath sounds equal bilaterally. No wheezes , rales, or rhonchi. GASTROINTESTINAL: Abdomen soft, non-tender, nondistended. No hepato-splenomegaly , or palpable masses. No guarding. EXTREMITIES: No clubbing, cyanosis, or edema. No joint tenderness. BACK: No central bony tenderness to palpation of the dorsal lumbar spine. Patient has right lower lumbar tenderness. Sits up in bed at 90. No saddle anesthesia. Good distal pulses. Without deformity. No flank tenderness. NEUROLOGICAL: Awake, alert and oriented x 3 .Cranial nerves grossly intact. Motor and sensory grossly within normal limits. Normal speech. Data Data Last Documented VS Vital Signs Date Time Temp Pulse Resp B/P (MAP) Pulse Ox O2 Delivery O2 Flow Rate FiO2 05/04/17 18:00 98.1 74 20 159/83 (108) 99 Orders Orders Complete Blood Count With Diff (05/04/17 18:03) Basic Metabolic Panel (Bmp) (05/04/17 18:03) Coag Profile (05/04/17 18:03) Us Leg Venous Doppler (05/04/17 ) Hip, Uni(Ap&Lat) W Ap Pelvis (05/04/17 ) Ed Discharge Order (05/04/17 22:32) Lidocaine 5% Patch.12 Hr (Lidoderm 5% Pa (05/04/17 22:45) Labs Laboratory Tests Test 05/04/17 19:55 White Blood Count 11.1 TH/MM3 Red Blood Count 5.35 MIL/MM3 Hemoglobin 12.2 GM/DL Hematocrit 37.9 % Mean Corpuscular Volume 70.9 FL Mean Corpuscular Hemoglobin 22.7 PG Mean Corpuscular Hemoglobin Concent 32.0 % Red Cell Distribution Width 18.6 % Platelet Count 334 TH/MM3 Mean Platelet Volume 7.8 FL Neutrophils (%) (Auto) 39.9 % Lymphocytes (%) (Auto) 48.4 % Monocytes (%) (Auto) 8.0 % Eosinophils (%) (Auto) 3.1 % Basophils (%) (Auto) 0.6 % Neutrophils # (Auto) 4.4 TH/MM3 Lymphocytes # (Auto) 5.4 TH/MM3 Monocytes # (Auto) 0.9 TH/MM3 Eosinophils # (Auto) 0.3 TH/MM3 Basophils # (Auto) 0.1 TH/MM3 CBC Comment AUTO DIFF Differential Total Cells Counted 100 Neutrophils % (Manual) 54 % Band Neutrophils % 1 % Lymphocytes % 37 % Monocytes % 4 % Eosinophils % 3 % Basophils % 1 % Neutrophils # (Manual) 6.1 TH/MM3 Differential Comment FINAL DIFF MANUAL Platelet Estimate NORMAL Platelet Morphology Comment NORMAL Ovalocytes 1+ Prothrombin Time 10.0 SEC Prothromb Time International Ratio 1.0 RATIO Activated Partial Thromboplast Time 31.5 SEC Blood Urea Nitrogen 15 MG/DL Creatinine 0.99 MG/DL Random Glucose 96 MG/DL Calcium Level 9.0 MG/DL Sodium Level 141 MEQ/L Potassium Level 3.3 MEQ/L Chloride Level 102 MEQ/L Carbon Dioxide Level 32.2 MEQ/L Anion Gap 7 MEQ/L Estimat Glomerular Filtration Rate 58 ML/MIN [facility] Medical Decision Making Medical Screen Exam Complete: Yes Emergency Medical Condition: Yes Medical Record Reviewed: Yes Interpretation(s) Last 24 hours Impressions Lower Extremity Ultrasound 05/04/17 0000 Signed Impressions: Service Date/Time: Thursday, May 04, 2017 19:04 - CONCLUSION: 1. Negative for right lower extremity DVT. Ross Brown MD Hip and Pelvis X-Ray 05/04/17 0000 Signed Impressions: Service Date/Time: Thursday, May 04, 2017 18:22 - CONCLUSION: 1. The bony pelvic ring is intact no definite fracture seen. 2. Right total hip arthroplasty without evidence of dislocation or fracture. The acetabular component protrudes lateral to the acetabulum 2 cm and there is some associated heterotopic ossification. This is of uncertain significance and there are no prior conventional radiographs of the right hip to determine whether this is a new finding or not. Ross Brown MD Laboratory Tests Test 05/04/17 19:55 White Blood Count 11.1 TH/MM3 Red Blood Count 5.35 MIL/MM3 Hemoglobin 12.2 GM/DL Hematocrit 37.9 % Mean Corpuscular Volume 70.9 FL Mean Corpuscular Hemoglobin 22.7 PG Mean Corpuscular Hemoglobin Concent 32.0 % Red Cell Distribution Width 18.6 % Platelet Count 334 TH/MM3 Mean Platelet Volume 7.8 FL Neutrophils (%) (Auto) 39.9 % Lymphocytes (%) (Auto) 48.4 % Monocytes (%) (Auto) 8.0 % Eosinophils (%) (Auto) 3.1 % Basophils (%) (Auto) 0.6 % Neutrophils # (Auto) 4.4 TH/MM3 Lymphocytes # (Auto) 5.4 TH/MM3 Monocytes # (Auto) 0.9 TH/MM3 Eosinophils # (Auto) 0.3 TH/MM3 Basophils # (Auto) 0.1 TH/MM3 CBC Comment AUTO DIFF Differential Total Cells Counted 100 Neutrophils % (Manual) 54 % Band Neutrophils % 1 % Lymphocytes % 37 % Monocytes % 4 % Eosinophils % 3 % Basophils % 1 % Neutrophils # (Manual) 6.1 TH/MM3 Differential Comment FINAL DIFF MANUAL Platelet Estimate NORMAL Platelet Morphology Comment NORMAL Ovalocytes 1+ Prothrombin Time 10.0 SEC Prothromb Time International Ratio 1.0 RATIO Activated Partial Thromboplast Time 31.5 SEC Blood Urea Nitrogen 15 MG/DL Creatinine 0.99 MG/DL Random Glucose 96 MG/DL Calcium Level 9.0 MG/DL Sodium Level 141 MEQ/L Potassium Level 3.3 MEQ/L Chloride Level 102 MEQ/L Carbon Dioxide Level 32.2 MEQ/L Anion Gap 7 MEQ/L Estimat Glomerular Filtration Rate 58 ML/MIN Differential Diagnosis MDM: High Differential diagnoses: Fracture, sprain, strain, dislocation, contusion, neurovascular injury Narrative Course X-rays negative for bony injury. Ultrasound of the right lower extremity is negative for DVT. I have reviewed the patient's laboratory test. I have a concern that this patient has a history of opiate dependency and is drug-seeking. I do not see any objective findings that indicate a need for opiate use at this time. The patient is given a Lidoderm patch and a prescription. She is advised to follow-up with her orthopedist, pain doctor and a primary care doctor. The patient is medically stable for discharge. This is acute exacerbation of chronic back pain Diagnosis Primary Impression: Acute exacerbation of chronic back pain Patient Instructions: General Instructions Additional Instructions: Rest. Activity as tolerated. Medications as directed. Follow up with your orthopedist this week. Follow-up with a pain management doctor. Follow-up with a primary care doctor within 1 week. Return to the ER for emergencies. Med/Other Pt SpecificInfo: Prescription(s) given Scripts Lidocaine (Lidoderm) 5 % Adh..patch 1 PATCH TP DAILY, #20 Prov: Neptali Zafar MD 05/04/17 Disposition: 01 DISCHARGE HOME Condition: Stable Oh Huggins May 04, 2017 22:38
[2017-05-04] MEDS ORDERED: LIDOCAINE HCL 5% PATCH T-DERMAL ONE (22:45)
== END 2017-05-05 05:52 | disposition home or self-care (01) ==
LOC: NEPD 17:49
DX: M54.5 Low back pain (principal); G89.29 Other chronic pain; M79.89 Other specified soft tissue disorders; F17.200 Nicotine dependence, unspecified, uncomplicated; E03.9 Hypothyroidism, unspecified
CPT/HCPCS: 73502; 80048; 85007; 85027; 85610; 85730; 93971; 99285

== ENCOUNTER 2017-08-04 17:53 | Inpatient (IN) | payer MEDICAID, OTHER ==
[~2017-08-04] VITALS: Ht 167.6 cm; Wt 104.8 kg
[~2017-08-04 17:53] MED LIST changes: -HYDR-3516 PO; +LIDO1ADH4 TP; -SOMA350T PO
[2017-08-04 18:02] VITALS: BP 137/89; PULSE 93; RESP 15; TEMP 97.7; O2SAT 96
[2017-08-04] MEDS ORDERED: CLON1 PO (18:21)
[2017-08-04] MEDS ORDERED: AMLO10TA2 PO (18:44)
[2017-08-04] MEDS ORDERED: CLIN300C5 PO (18:48)
[2017-08-04] MEDS ORDERED: HYDR25TA5 PO (18:48)
[2017-08-04] MEDS ORDERED: FURO1TAB62 PO (18:48)
[2017-08-04] MEDS ORDERED: NORC5TAB PO (18:48)
--- NOTE | 2017-08-04 20:01 | PD ---
HPI Chief Complaint: Psychiatric Symptoms Time Seen by Provider: 19:53 Travel History International Travel<30 days: No Contact w/Intl Traveler<30days: No Traveled to known affect area: No History of Present Illness HPI This is a 52-year-old female who presents under [place] [employer]. This patient was transferred from [facility] where she was previously medically cleared on August 02. Reportedly she was in the ICU for several days after an Ambien overdose. According her paperwork she was feeling depressed and suicidal. Symptom onset unknown. Duration unknown. No active or alleviating factors. According to her paperwork she was discharged with a prescription for clindamycin every 6 for treatment of aspiration pneumonia. She is currently complaining of chronic lower back pain for which she takes [place] on a regular basis. She is also complaining of anxiety. She has no other complaints at this time. PFSH Past Medical History Hx Anticoagulant Therapy: Yes Arthritis: Yes Asthma: Yes Autoimmune Disease: No Blood Disorders: No Bipolar Disorder: Yes Anxiety: Yes Depression: Yes Heart Rhythm Problems: No Cancer: No Cardiovascular Problems: Yes High Cholesterol: No Chemotherapy: No Chest Pain: No Congestive Heart Failure: No COPD: Yes Cerebrovascular Accident: No Diabetes: No Diminished Hearing: No Endocrine: Yes (HYPOTHROIDISM) Gastrointestinal Disorders: Yes GERD: No Glaucoma: No Genitourinary: Yes (INCONTINENCE) Headaches: No Hepatitis: Yes (C) Hiatal Hernia: No Hypertension: Yes Immune Disorder: No Implanted Vascular Access Dvce: No Insomnia: Yes Kidney Stones: No Musculoskeletal: Yes (LOWER BACK PAIN) Neurologic: No Psychiatric: Yes (Schizoaffective Disorder) Reproductive: No Respiratory: Yes (COPD) Immunizations Current: Yes Migraines: No Myocardial Infarction: No Radiation Therapy: No Renal Failure: No Schizophrenia: Yes Seizures: No Sickle Cell Disease: No Sleep Apnea: No Thyroid Disease: Yes (HYPO) Ulcer: Yes (STOMACH) ?: Unknown Menopausal: Yes : 1 Para: 1 Miscarriage: 0 : 0 Dilation and Curettage (D&C): Yes Past Surgical History Abdominal Surgery: No AICD: No Appendectomy: No Arteriovenous Shunt: No Cardiac Surgery: No Cholecystectomy: No Ear Surgery: No Endocrine Surgery: No Eye Surgery: No Genitourinary Surgery: No Gynecologic Surgery: No Insulin Pump: No Joint Replacement: No Neurologic Surgery: No Oral Surgery: No Pacemaker: No Thoracic Surgery: No Other Surgery: Yes (HX OF CHIN AND NOSE IMPLANTS, BOTH KNEES REPLACEMENT) Social History Alcohol Use: No Tobacco Use: Yes (2 PPD) Substance Use: Yes (See records.) Allergies-Medications (Allergen,Severity, Reaction): Coded Allergies: haloperidol (Unverified Allergy, Severe, PARADOXICAL EFFECT, 08/04/17) risperidone (Unverified Allergy, Severe, PARADOXICAL EFFECT, 08/04/17) thiothixene (Unverified Allergy, Severe, PARADOXICAL EFFECT, 05/04/17) doxycycline (Verified Allergy, Unknown, 08/04/17) quetiapine (Verified Allergy, Unknown, paradoxical reaction, 08/04/17) trazodone (Unverified Allergy, Unknown, 08/04/17) ziprasidone (Verified Allergy, Unknown, paradoxical reaction, 08/04/17) Reported Meds & Prescriptions Reported Meds & Active Scripts Active Reported [place] (Hydrocodone-Acetaminophen) 5 Mg-325 Mg Tab 1 Tab PO Q4H PRN Lasix (Furosemide) 20 Mg Tab 20 Mg PO DAILY Hydrochlorothiazide 25 Mg Tab 25 Mg PO DAILY Clindamycin (Clindamycin HCl) 300 Mg Cap 300 Mg PO Q6H 4 Days Amlodipine (Amlodipine Besylate) 10 Mg Tab 10 Mg PO HS Klonopin (Clonazepam) 1 Mg Tab 1 Mg PO BID Gabapentin 400 Mg Cap 400 Cap PO TID Cymbalta DR (Duloxetine HCl) 60 Mg Capdr 60 Mg PO DAILY Levothyroxine (Levothyroxine Sodium) 50 Mcg Tab 50 Mcg PO DAILY Lamictal (Lamotrigine) 25 Mg Tab 25 Mg PO BID Review of Systems Except as stated in HPI: all other systems reviewed are Neg Physical Exam Narrative GENERAL: Well-developed well-nourished female no acute distress SKIN: Warm and dry. HEAD: Atraumatic. Normocephalic. EYES: Pupils equal and round. No scleral icterus. No injection or drainage. ENT: No nasal bleeding or discharge. Mucous membranes pink and moist. NECK: Trachea midline. No JVD. CARDIOVASCULAR: Regular rate and rhythm. No murmur appreciated. RESPIRATORY: No accessory muscle use. Clear to auscultation. Breath sounds equal bilaterally. GASTROINTESTINAL: Abdomen soft, non-tender, nondistended. Hepatic and splenic margins not palpable. MUSCULOSKELETAL: No obvious deformities. No clubbing. No cyanosis. No edema. NEUROLOGICAL: Awake and alert. No obvious cranial nerve deficits. Motor grossly within normal limits. Normal speech. PSYCHIATRIC: Anxious appearing. Insight and judgment appear normal. Data Data Last Documented VS Vital Signs Date Time Temp Pulse Resp B/P (MAP) Pulse Ox O2 Delivery O2 Flow Rate FiO2 08/04/17 18:02 97.7 93 15 137/89 (105) 96 Room Air Orders Orders Psych Screen (08/04/17 19:19) Clindamycin (Cleocin) (08/04/17 20:15) MDM Medical Decision Making Medical Screen Exam Complete: Yes Emergency Medical Condition: Yes Medical Record Reviewed: Yes Differential Diagnosis Substance-induced mood disorder, acute psychosis, major depressive disorder, depressive disorder not otherwise specified, bipolar disorder, schizophrenia Narrative Course I reviewed the patient's paperwork from [facility]. I have initiated clindamycin 300 mg every 6 hours for the duration of her hospital stay for treatment of previously diagnosed aspiration pneumonia. Mental health screening discussed with the patient. Psychiatric screen ordered. The patient is medically cleared for psychiatric disposition. Diagnosis Primary Impression: Medical clearance for psychiatric admission Evens Dumont Aug 04, 2017 20:01
[2017-08-04] MEDS: CLINDAMYCIN 150 MG CAP PO SCH (22:05)
[2017-08-04 23:30] VITALS: BP 112/73; PULSE 77; RESP 18; TEMP 98.1; O2SAT 97
[2017-08-05] MEDS: CLINDAMYCIN 150 MG CAP PO SCH ×4 (06:00→18:41)
[2017-08-05] MEDS ORDERED: IBUPROFEN 600 MG TAB PO ONE (06:15)
[2017-08-05 06:33] VITALS: BP 121/89; PULSE 82; RESP 20; TEMP 98.5; O2SAT 98
[2017-08-05 14:05] VITALS: BP 134/88; PULSE 96; RESP 18; TEMP 98.6; O2SAT 99
[2017-08-05] MEDS ORDERED: FLUMAZENIL 0.5 MG/5 ML VIAL IV PUSH PRN (15:30)
[2017-08-05] MEDS ORDERED: MAGNESIUM HYDROXIDE SUSP 30 ML CUP PO PRN (15:30)
[2017-08-05] MEDS ORDERED: LORazepam 0.5 MG TAB PO PRN (15:30)
[2017-08-05] MEDS ORDERED: ALUMINUM/MAGNESIUM/SIMETH 30 ML CUP PO PRN (15:30)
[2017-08-05] MEDS ORDERED: LORazepam 2 MG/ML VIAL IM PRN ×2 (15:30)
[2017-08-05] MEDS ORDERED: LORazepam 2 MG/ML VIAL IV PUSH PRN ×4 (15:30)
[2017-08-05] MEDS: NICOTINE 21 MG/24 HR PATCH T-DERMAL SCH (15:30)
[2017-08-05] MEDS: ACETAMINOPHEN 325 MG TAB PO PRN (19:25)
[2017-08-05] MEDS: LORazepam 1 MG TAB PO PRN (20:56)
[2017-08-05] MEDS: REMOVE OLD NICODERM (NICOTINE) PATCH T-DERMAL SCH (20:58)
[2017-08-06] MEDS: CLINDAMYCIN 150 MG CAP PO SCH ×3 (00:50→12:00)
[2017-08-06 06:12] VITALS: BP 124/79; PULSE 93; RESP 16; TEMP 97.2; O2SAT 100
[2017-08-06] MEDS: LORazepam 2 MG TAB PO PRN ×2 (07:53→15:00)
[2017-08-06 08:05] VITALS: BP 142/64; PULSE 91; RESP 18; TEMP 97.9; O2SAT 96
[2017-08-06] MEDS: NICOTINE 21 MG/24 HR PATCH T-DERMAL SCH (08:05)
[2017-08-06 09:39] LABS: BICARBONATE 28.6 MEQ/L (21.0-32.0); BLOOD UREA NITROGEN 20 MG/DL (7-18); CALCIUM 9.9 MG/DL (8.5-10.1); CHLORIDE 98 MEQ/L (98-107); CREATININE 1.13 MG/DL (0.50-1.00); GLOMERULAR FILTRATION RATE 50 ML/MIN (>89); GLUCOSE,RANDOM 143 MG/DL (74-106); SODIUM (NA) 137 MEQ/L (136-145)
[2017-08-06 09:40] LABS: CHOLESTEROL 182 MG/DL (120-200)
[2017-08-06 09:43] LABS: CHOLESTEROL/ HDL RATIO 4.77 RATIO; HDL CHOLESTEROL 38.1 MG/DL (40.0-60.0); LDL CHOLESTEROL 100 MG/DL (0-99); TRIGLYCERIDES 219 MG/DL (42-150)
[2017-08-06] MEDS ORDERED: INFLUENZA VIRUS VACCINE (QUADRIVALENT) 0.5 ML SYR IM ONE (10:00)
[2017-08-06] MEDS ORDERED: PNEUMOCOCCAL POLYVALENT INJ 25 MCG/0.5 ML SYR IM ONE (10:00)
[2017-08-06] MEDS: HYDROCHLOROTHIAZIDE 25 MG TAB PO SCH (13:00)
[2017-08-06] MEDS ORDERED: FUROSEMIDE 20 MG TAB PO SCH (13:00)
[2017-08-06] MEDS ORDERED: GABAPENTIN 400 MG CAP PO SCH ×2 (13:00)
[2017-08-06 14:35] VITALS: BP 146/97; PULSE 91; RESP 18; TEMP 97.5; O2SAT 99
[2017-08-06] MEDS ORDERED: ONDANSETRON ODT 4 MG TAB PO PRN (14:45)
--- NOTE | 2017-08-06 15:16 | PD.CONS ---
[facility] Requested By Psychiatry team Reason for Consult Assist with medical management Primary Care Physician No Primary Care Physician Diagnoses: History of Present Illness Patient is a 52-year-old female with primary medical history of osteoarthritis, HTN, hypothyroidism, COPD, hep C who initially came in to [facility] secondary to suicide attempt, patient overdosed on Ambien. She is not admitted to inpatient psychiatry and for further evaluation. Consulted for assistance with medical management. Patient seen and examined today. States she overdosed on Ambien. Her hospitalization is complicated with aspiration pneumonia wherein patients was placed on clindamycin. Patient is now having diarrhea. She also states that she has rheumatoid arthritis but when asked who diagnosed her with rheumatoid arthritis she said she does not know. States she has chronic pain were and she takes Percocets. She also has neuropathy were and she takes gabapentin. Patient appears to be very anxious. Discussed with patient that she will not be provided by Percocets right now. She will have [place]'s and we will not send her home with any pain medication which she agreed and understood. Reports she continues to smoke cigarettes about 2 packs per day. She denies any illicit drug use. Today she complains of nausea, vomiting, abdominal pain and cramping , diarrhea. Denies fevers, chills. Denies chest pain, palpitations. Reports occasional shortness of breath, patient states that she has COPD and has been taking Advair and albuterol. States that she does not like the nebulization because it gives her palpitations. Review of Systems Except as stated in HPI: all other systems reviewed are Neg Past Family Social History Allergies: Coded Allergies: haloperidol (Unverified Allergy, Severe, PARADOXICAL EFFECT, 08/04/17) risperidone (Unverified Allergy, Severe, PARADOXICAL EFFECT, 08/04/17) thiothixene (Unverified Allergy, Severe, PARADOXICAL EFFECT, 05/04/17) doxycycline (Verified Allergy, Unknown, 08/04/17) quetiapine (Verified Allergy, Unknown, paradoxical reaction, 08/04/17) trazodone (Unverified Allergy, Unknown, 08/04/17) ziprasidone (Verified Allergy, Unknown, paradoxical reaction, 08/04/17) Past Medical History Osteoarthritis Obese HTN Hypothyroidism COPD Hep C Neuropathy Past Surgical History Bilateral knee repair No sedation surgery Right hip replacement Reported Medications Reported Meds & Active Scripts Active Reported [place] (Hydrocodone-Acetaminophen) 5 Mg-325 Mg Tab 1 Tab PO Q4H PRN Lasix (Furosemide) 20 Mg Tab 20 Mg PO DAILY Hydrochlorothiazide 25 Mg Tab 25 Mg PO DAILY Clindamycin (Clindamycin HCl) 300 Mg Cap 300 Mg PO Q6H 4 Days Amlodipine (Amlodipine Besylate) 10 Mg Tab 10 Mg PO HS Klonopin (Clonazepam) 1 Mg Tab 1 Mg PO BID Gabapentin 400 Mg Cap 400 Cap PO TID Cymbalta DR (Duloxetine HCl) 60 Mg Capdr 60 Mg PO DAILY Levothyroxine (Levothyroxine Sodium) 50 Mcg Tab 50 Mcg PO DAILY Lamictal (Lamotrigine) 25 Mg Tab 25 Mg PO BID Active Ordered Medications Current Medications Medications (Trade) Dose Ordered Sig/Tres Route Start Time Stop Time Status Last Admin (Ativan) 1 mg Q6H PRN PO 08/05/17 15:30 Future Hold (Ativan Inj) 1 mg Q6H PRN IM 08/05/17 15:30 Future Hold (Tylenol) 650 mg Q4H PRN PO 08/05/17 15:30 08/05/17 19:25 (Milk Of Magnesia Liq) 30 ml DAILY PRN PO 08/05/17 15:30 (Mag-Al Plus Susp Liq) 30 ml Q6H PRN PO 08/05/17 15:30 08/05/17 20:57 (Habitrol 21 Mg Patch.24 Hr) 1 patch DAILY T-DERMAL 08/05/17 15:30 08/06/17 08:05 (Romazicon Inj) 0.2 mg Q1M PRN IV PUSH 08/05/17 15:30 (Ativan) 1 mg Q4H PRN PO 08/05/17 15:30 08/05/17 20:56 (Ativan Inj) 1 mg Q4H PRN IV PUSH 08/05/17 15:30 (Ativan) 2 mg Q2H PRN PO 08/05/17 15:30 08/06/17 15:00 (Ativan Inj) 2 mg Q2H PRN IV PUSH 08/05/17 15:30 (Ativan Inj) 2 mg Q1H PRN IV PUSH 08/05/17 15:30 (Ativan Inj) 2 mg Q15M PRN IV PUSH 08/05/17 15:30 Miscellaneous Information 1 HS T-DERMAL 08/05/17 21:00 (Norvasc) 10 mg HS PO 08/06/17 21:00 (Cymbalta Dr) 60 mg DAILY PO 08/07/17 09:00 (Hydrodiuril) 25 mg DAILY PO 08/06/17 13:00 08/06/17 13:00 (Synthroid) 50 mcg DAILY@0600 PO 08/07/17 06:00 (Benadryl) 50 mg HS PRN PO 08/06/17 13:00 (Latuda) 80 mg DAILY PO 08/07/17 09:00 (LaMICtal) 100 mg Q12HR PO 08/06/17 21:00 (Zofran Odt) 4 mg Q4H PRN PO 08/06/17 14:45 08/06/17 15:36 (Flagyl) 500 mg Q8HR PO 08/06/17 15:30 (Proair Hfa Inh) 2 puff Q6H PRN INH 08/06/17 15:30 (Symbicort 160-4.5 Mcg Inh) 1 puff Q12HR INH 08/06/17 21:00 (Spiriva Inh) 18 mcg DAILY INH 08/06/17 15:30 Family History Father has diabetes Mother has high blood pressure Social History Denies alcohol use Current day smoker, 2 packs per day Marijuana use occasionally Physical Exam Vital Signs Vital Signs Date Time Temp Pulse Resp B/P (MAP) Pulse Ox O2 Delivery O2 Flow Rate FiO2 08/06/17 14:35 97.5 91 18 146/97 (113) 99 08/06/17 08:05 97.9 91 18 142/64 (90) 96 08/06/17 06:12 97.2 93 16 124/79 (94) 100 Physical Exam GENERAL: This is an obese, well-developed patient, in no apparent distress. SKIN: No rashes, ecchymoses or lesions. Cool and dry. HEAD: Normocephalic. EYES: Pupils equal round and reactive. Extraocular motions intact. No scleral icterus. No injection or drainage. ENT: Nose without bleeding. Throat without erythema. Uvula midline. Airway patent. NECK: Trachea midline. CARDIOVASCULAR: Regular rate and rhythm without murmurs, gallops, or rubs. RESPIRATORY: Coarse breath sounds. No wheezes, rales, or rhonchi. GASTROINTESTINAL: Abdomen soft, non-tender, nondistended. Bowel sounds active times MUSCULOSKELETAL: Extremities without clubbing, cyanosis, or edema. NEUROLOGICAL: Awake and alert. Anxious. Motor and sensory grossly within normal limits. Five out of 5 muscle strength in all muscle groups. Normal speech. Laboratory Laboratory Tests Test 08/06/17 08:25 Blood Urea Nitrogen 20 Creatinine 1.13 Random Glucose 143 Calcium Level 9.9 Sodium Level 137 Potassium Level 3.8 Chloride Level 98 Carbon Dioxide Level 28.6 Anion Gap 10 Estimat Glomerular Filtration Rate 50 Triglycerides Level 219 Cholesterol Level 182 LDL Cholesterol 100 HDL Cholesterol 38.1 Cholesterol/HDL Ratio 4.77 Result Diagram: 08/06/17824 Assessment and Plan Assessment and Plan Patient is a 52-year-old female with primary medical history of osteoarthritis, HTN, hypothyroidism, COPD, hep C who initially came in to [facility] [place] [facility] secondary to suicide attempt, patient overdosed on Ambien. She is not admitted to inpatient psychiatry and for further evaluation. Consulted for assistance with medical management. Suicidal attempt, depression, anxiety -Managed by psychiatry team Aspiration pneumonia COPD, not in exacerbation -Diagnosed at [facility] and patient was placed on clindamycin -Patient has diarrhea on clindamycin use with abdominal pain cramping, nausea , vomiting -DC clindamycin for now. Send stool for C. difficile. -Start Flagyl 500 mg 3 times daily for aspiration pneumonia coverage and possible C. difficile -Start Symbicort twice daily, Tiotropium daily, albuterol inhaler as needed -Monitor respiratory status HTN -Continue home medication -Monitor BP trend Osteoarthritis Chronic pain Neuropathy -Suspect patient does not have rheumatoid arthritis as she was never diagnosed by a vp digital marketing, nor she knows of any work up done. She was referred to a vp digital marketing but has never went for her appointment -We will place patient on [place] 5/325mg every 8 hours as needed for pain. Discussed with patient she will not be getting any prescription for pain when she goes home she has some pain medications at home. -She may benefit with possible Cymbalta use as most of her pain symptoms appears to be somatic complaints. -Gabapentin 300 mg 3 times daily -Monitor results Hypothyroidism -Resume levothyroxine Tobacco abuse -Counseling. Nicotine patch DVT prop early ambulation Code Status Full code Discussed Condition With Patient, nursing Alejandra AllenP Aug 06, 2017 15:16
[2017-08-06] MEDS: TIOTROPIUM BROMIDE 18 MCG INH INH SCH (15:30)
[2017-08-06] MEDS ORDERED: ALBUTEROL SULFATE 90 MCG/ACT HFA 8 GM INHALER INH PRN (15:30)
[2017-08-06] MEDS: metroNIDAZOLE 500 MG TAB PO SCH ×2 (15:30→22:17)
[2017-08-06 16:18] LABS: HEMOGLOBIN A1C 5.5 % (4.3-6.0)
[2017-08-06] MEDS ORDERED: ACETAMINOPHEN/HYDROcodone 325 MG/5 MG TAB PO PRN (16:30)
[2017-08-06] MEDS: GABAPENTIN 300 MG CAP PO SCH (16:51)
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
[2017-08-06 18:07] VITALS: BP 136/91; PULSE 104; RESP 15; TEMP 97.4; O2SAT 96
[2017-08-06] MEDS: ACETAMINOPHEN/HYDROcodone 325 MG/5 MG TAB PO PRN (18:45)
[2017-08-06] MEDS: REMOVE OLD NICODERM (NICOTINE) PATCH T-DERMAL SCH (21:00)
[2017-08-06] MEDS: lamoTRIgine 100 MG TAB PO SCH (21:12)
[2017-08-06] MEDS: BUDESONIDE-FORMOTEROL 160/4.5 MCG INHALER INH SCH (21:13)
[2017-08-06] MEDS: diphenhydrAMINE HCL 50 MG CAP PO PRN (21:14)
[2017-08-07] MEDS: metroNIDAZOLE 500 MG TAB PO SCH ×3 (06:28→21:47)
[2017-08-07] MEDS: LEVOTHYROXINE SODIUM 50 MCG TAB PO SCH (06:28)
[2017-08-07 07:18] VITALS: BP 120/84; PULSE 77; RESP 18; TEMP 98.4; O2SAT 96
[2017-08-07] MEDS: GABAPENTIN 300 MG CAP PO SCH ×3 (08:57→17:27)
[2017-08-07] MEDS: NICOTINE 21 MG/24 HR PATCH T-DERMAL SCH (08:57)
[2017-08-07] MEDS: lamoTRIgine 100 MG TAB PO SCH ×2 (08:57→21:47)
[2017-08-07] MEDS: DULoxetine HCl DR 60 MG CAP PO SCH (08:57)
[2017-08-07] MEDS: HYDROCHLOROTHIAZIDE 25 MG TAB PO SCH (08:57)
[2017-08-07] MEDS: LURASIDONE 80 MG TAB PO SCH (08:57)
[2017-08-07] MEDS: TIOTROPIUM BROMIDE 18 MCG INH INH SCH (08:59)
[2017-08-07] MEDS: BUDESONIDE-FORMOTEROL 160/4.5 MCG INHALER INH SCH ×2 (08:59→21:48)
[2017-08-07 09:16] LABS: HEMATOCRIT 41.8 % (35.0-46.0); HEMOGLOBIN 13.6 GM/DL (11.6-15.3); MEAN CELL VOLUME 74.8 FL (80.0-100.0); MEAN CORPUSCULAR HEMOGLOBIN 24.4 PG (27.0-34.0); MEAN CORPUSCULAR HGB CONC 32.7 % (32.0-36.0); MEAN PLATELET VOLUME 8.5 FL (7.0-11.0); PLATELET COUNT 319 TH/MM3 (150-450); RED BLOOD COUNT 5.59 MIL/MM3 (4.00-5.30); RED CELL DISTRIBUTION WIDTH 19.3 % (11.6-17.2); WHITE BLOOD COUNT 7.9 TH/MM3 (4.0-11.0)
[2017-08-07] MEDS: LORazepam 1 MG TAB PO PRN ×2 (09:32→17:27)
[2017-08-07] MEDS: ACETAMINOPHEN/HYDROcodone 325 MG/5 MG TAB PO PRN ×2 (09:33→18:36)
[2017-08-07 09:41] LABS: ALBUMIN 3.7 GM/DL (3.4-5.0); AST (GOT) 16 U/L (15-37); BICARBONATE 27.2 MEQ/L (21.0-32.0); BLOOD UREA NITROGEN 20 MG/DL (7-18); CALCIUM 9.7 MG/DL (8.5-10.1); CHLORIDE 100 MEQ/L (98-107); CREATININE 1.04 MG/DL (0.50-1.00); GLOMERULAR FILTRATION RATE 55 ML/MIN (>89); GLUCOSE,RANDOM 101 MG/DL (74-106); SODIUM (NA) 139 MEQ/L (136-145)
[2017-08-07 09:45] LABS: ALKALINE PHOSPHATASE 73 U/L (45-117); ALT (GPT) 28 U/L (10-53); TOTAL BILIRUBIN ADULT 0.5 MG/DL (0.2-1.0); TOTAL PROTEIN 7.3 GM/DL (6.4-8.2)
[2017-08-07 13:40] VITALS: BP 127/85; PULSE 91
[2017-08-07] MEDS: ACETAMINOPHEN 325 MG TAB PO PRN (13:51)
--- NOTE | 2017-08-07 16:27 | HHI.PR ---
Subjective Remarks Follow-up visit altered mental status, osteoarthritis, HTN, hypothyroidism, COPD. Patient seen and examined today. More awake and alert. States she is doing better. Very thankful and that she is a lot better compared to she was yesterday. Patient states she had visitation and was very happy about it. States that her pain is improved with medication use. Denies SOB/ dyspnea. Denies chest pain, palpitations, headaches, dizziness. Denies fevers, chills, n/ v. Denies dysuria. Denies diarrhea Objective Vitals Vital Signs Date Time Temp Pulse Resp B/P (MAP) Pulse Ox O2 Delivery O2 Flow Rate FiO2 08/07/17 13:40 91 127/85 (99) 08/07/17 07:18 98.4 77 18 120/84 (96) 96 08/06/17 18:07 97.4 104 15 136/91 (106) 96 I/O 08/06/17 08/06/17 08/06/17 08/07/17 08/07/17 08/07/17 07:00 15:00 23:00 07:00 15:00 23:00 Intake Total 360 ml Balance 360 ml Intake Oral 360 ml Result Diagram: 08/07/17 0741 08/07/17 0741 Objective Remarks GENERAL: This is an obese, well-developed patient, in no apparent distress. SKIN: No rashes, ecchymoses or lesions. Cool and dry. HEAD: Normocephalic. EYES: Pupils equal round and reactive. Extraocular motions intact. No scleral icterus. No injection or drainage. ENT: Nose without bleeding. Throat without erythema. Uvula midline. Airway patent. NECK: Trachea midline. CARDIOVASCULAR: Regular rate and rhythm without murmurs, gallops, or rubs. RESPIRATORY: Coarse breath sounds. No wheezes, rales, or rhonchi. GASTROINTESTINAL: Abdomen soft, non-tender, nondistended. Bowel sounds active times MUSCULOSKELETAL: Extremities without clubbing, cyanosis, or edema. NEUROLOGICAL: Awake and alert. Anxious. Motor and sensory grossly within normal limits. Normal speech. A/P Assessment and Plan Patient is a 52-year-old female with primary medical history of osteoarthritis, HTN, hypothyroidism, COPD, hep C who initially came in to [facility] [place] [facility] secondary to suicide attempt, patient overdosed on Ambien. She is not admitted to inpatient psychiatry and for further evaluation. Consulted for assistance with medical management. Suicidal attempt, depression, anxiety -Managed by psychiatry team Aspiration pneumonia COPD, not in exacerbation -Diagnosed at [facility] and patient was placed on clindamycin -Patient has diarrhea on clindamycin use with abdominal pain cramping, nausea , vomiting -DC clindamycin for now. Send stool for C. difficile. -Flagyl 500 mg 3 times daily for aspiration pneumonia coverage and possible C. difficile -Symbicort twice daily, Tiotropium daily, albuterol inhaler as needed -Monitor respiratory status. On RA breathing better HTN -Continue home medication -Monitor BP trend Osteoarthritis Chronic pain Neuropathy -Suspect patient does not have rheumatoid arthritis as she was never diagnosed by a direct care specialist, nor she knows of any work up done. She was referred to a direct care specialist but has never went for her appointment -[place] 5/325mg every 8 hours as needed for pain. -Patient she will not be getting any prescription for pain when she goes home she has some pain medications at home. -Gabapentin 300 mg 3 times daily -Improved Hypothyroidism -Resume levothyroxine Tobacco abuse -Counseling. Nicotine patch Hep C -Follow-up with gastroenterology or hepatology as an outpatient. Acute kidney Injury -Possibly related to medication overdose -Monitor renal indicis. Avoid nephrotoxins. -Improved DVT prop early ambulation Alejandra Allen Aug 07, 2017 16:27
--- NOTE | 2017-08-07 16:34 | HHI.PYPN ---
Subjective Remarks Pt seen and discussed with staff. She is cooperative with care and complaint with medications. She remains depressed, but denies SI today. She reports difficulty implementing coping skills and lack of self regulation. Mental Status Examination Appearance: Appropriate Consciousness: Alert Orientation: Person, Place, Date/Time Speech: Slow Language: Adequate Fund of Knowledge: Inadequate Attention and Concentration: Easily Distracted Memory: Impaired Mood: Anxious Affect: Anxious Thought Process & Associations: Disorganized (Somewhat) Thought Content: Other (Some poverty of thought) Hallucination Type: None Delusion Type: None Suicidal Ideation: No (denies today) Suicidal Plan: No Suicidal Intention: No Homicidal Ideation: No Homicidal Plan: No Homicidal Intention: No Insight: Poor Judgment: Poor Results Labs Test 08/07/17 07:41 White Blood Count 7.9 TH/MM3 Red Blood Count 5.59 MIL/MM3 Hemoglobin 13.6 GM/DL Hematocrit 41.8 % Mean Corpuscular Volume 74.8 FL Mean Corpuscular Hemoglobin 24.4 PG Mean Corpuscular Hemoglobin Concent 32.7 % Red Cell Distribution Width 19.3 % Platelet Count 319 TH/MM3 Mean Platelet Volume 8.5 FL Blood Urea Nitrogen 20 MG/DL Creatinine 1.04 MG/DL Random Glucose 101 MG/DL Total Protein 7.3 GM/DL Albumin 3.7 GM/DL Calcium Level 9.7 MG/DL Alkaline Phosphatase 73 U/L Aspartate Amino Transf (AST/SGOT) 16 U/L Alanine Aminotransferase (ALT/SGPT) 28 U/L Total Bilirubin 0.5 MG/DL Sodium Level 139 MEQ/L Potassium Level 3.6 MEQ/L Chloride Level 100 MEQ/L Carbon Dioxide Level 27.2 MEQ/L Anion Gap 12 MEQ/L Estimat Glomerular Filtration Rate 55 ML/MIN Vitals/IOs Vital Signs Date Time Temp Pulse Resp B/P (MAP) Pulse Ox O2 Delivery O2 Flow Rate FiO2 08/07/17 13:40 91 127/85 (99) 08/07/17 07:18 98.4 18 96 08/05/17 14:05 Room Air Assessment & Plan Problem List: (1) Bipolar disorder ICD Codes: F31.9 - Bipolar disorder, unspecified Assessment & Plan Continue current tx plan. Estimated LOS: days Justification for Cont. Inpt. risk of decompensation Problem Qualifiers (1) Bipolar disorder: Qualified Codes: F31.4 - Bipolar disorder, current episode depressed, severe, without psychotic features Adwoa Avelar MD Aug 07, 2017 16:34
[2017-08-07 18:14] VITALS: BP 135/85; PULSE 86; RESP 18; TEMP 97.8; O2SAT 97
[2017-08-07] MEDS: REMOVE OLD NICODERM (NICOTINE) PATCH T-DERMAL SCH (21:00)
[2017-08-07] MEDS: diphenhydrAMINE HCL 50 MG CAP PO PRN (21:53)
[2017-08-08] MEDS: ACETAMINOPHEN/HYDROcodone 325 MG/5 MG TAB PO PRN ×3 (02:40→18:21)
[2017-08-08] MEDS: metroNIDAZOLE 500 MG TAB PO SCH ×3 (05:05→21:10)
[2017-08-08] MEDS: LEVOTHYROXINE SODIUM 50 MCG TAB PO SCH (05:05)
[2017-08-08] MEDS: LORazepam 1 MG TAB PO PRN (05:05)
[2017-08-08 06:00] VITALS: BP 128/95; PULSE 75; RESP 16; TEMP 98; O2SAT 97
[2017-08-08] MEDS: HYDROCHLOROTHIAZIDE 25 MG TAB PO SCH (08:29)
[2017-08-08] MEDS: TIOTROPIUM BROMIDE 18 MCG INH INH SCH (08:29)
[2017-08-08] MEDS: BUDESONIDE-FORMOTEROL 160/4.5 MCG INHALER INH SCH ×2 (08:29→21:00)
[2017-08-08] MEDS: LURASIDONE 80 MG TAB PO SCH (08:29)
[2017-08-08] MEDS: DULoxetine HCl DR 60 MG CAP PO SCH (08:29)
[2017-08-08] MEDS: GABAPENTIN 300 MG CAP PO SCH ×3 (08:29→17:02)
[2017-08-08] MEDS: lamoTRIgine 100 MG TAB PO SCH ×2 (08:29→21:10)
[2017-08-08] MEDS: NICOTINE 21 MG/24 HR PATCH T-DERMAL SCH (08:30)
[2017-08-08] MEDS: ACETAMINOPHEN 325 MG TAB PO PRN ×3 (08:57→22:58)
--- NOTE | 2017-08-08 14:09 | HHI.PYPN ---
Subjective Remarks Pt seen and discussed with staff. Pt has been attention seeking and focused on somatic complaints. She states that primary care doctor has ordered referrals and she is feeling overwhelmed by healthcare which contributes to anxiety. She reports that she is feeling less depressed today. She compliant with medications and denies side effects. No aggression or agitation. Mental Status Examination Appearance: Appropriate Consciousness: Alert Orientation: Person, Place, Date/Time Speech: Rapid Language: Adequate Fund of Knowledge: Adequate Attention and Concentration: Easily Distracted Memory: Impaired Mood: Anxious Affect: Anxious Thought Process & Associations: Tangential Thought Content: Other (Some poverty of thought) Hallucination Type: None Delusion Type: None Suicidal Ideation: No (denies today) Suicidal Plan: No Suicidal Intention: No Homicidal Ideation: No Homicidal Plan: No Homicidal Intention: No Insight: Poor Judgment: Poor Results Vitals/IOs Vital Signs Date Time Temp Pulse Resp B/P (MAP) Pulse Ox O2 Delivery O2 Flow Rate FiO2 08/08/17 06:00 98.0 75 16 128/95 (106) 97 08/05/17 14:05 Room Air Assessment & Plan Problem List: (1) Bipolar disorder ICD Codes: F31.9 - Bipolar disorder, unspecified Assessment & Plan Pt improving. Continue current tx plan. Estimated LOS: days Justification for Cont. Inpt. risk of decompensation Problem Qualifiers (1) Bipolar disorder: Qualified Codes: F31.4 - Bipolar disorder, current episode depressed, severe, without psychotic features Adwoa Avelar MD Aug 08, 2017 14:08
--- NOTE | 2017-08-08 15:12 | HHI.PR ---
Subjective Remarks Follow-up visit altered mental status, osteoarthritis, HTN, hypothyroidism, COPD. Patient seen and examined today. Patient states that she is doing better. Smiling, pleasant. Very thankful. Denies SOB/ dyspnea. Denies chest pain, palpitations, headaches, dizziness. Denies fevers, chills, n/v. Denies dysuria. Denies diarrhea. Objective Vitals Vital Signs Date Time Temp Pulse Resp B/P (MAP) Pulse Ox O2 Delivery O2 Flow Rate FiO2 08/08/17 06:00 98.0 75 16 128/95 (106) 97 08/08/17 03:40 20 08/07/17 18:14 97.8 86 18 135/85 (102) 97 Result Diagram: 08/07/17 0741 08/07/17 0741 Objective Remarks GENERAL: This is an obese, well-developed patient, in no apparent distress. SKIN: No rashes, ecchymoses or lesions. Cool and dry. HEAD: Normocephalic. EYES: Pupils equal round and reactive. Extraocular motions intact. No scleral icterus. No injection or drainage. ENT: Nose without bleeding. Throat without erythema. Uvula midline. Airway patent. NECK: Trachea midline. CARDIOVASCULAR: Regular rate and rhythm without murmurs, gallops, or rubs. RESPIRATORY: Clear to auscultation, no wheezes, rales, or rhonchi. GASTROINTESTINAL: Abdomen soft, non-tender, nondistended. Bowel sounds active times MUSCULOSKELETAL: Extremities without clubbing, cyanosis, or edema. NEUROLOGICAL: Awake and alert. Appears less Anxious. Motor and sensory grossly within normal limits. Normal speech. A/P Assessment and Plan Patient is a 52-year-old female with primary medical history of osteoarthritis, HTN, hypothyroidism, COPD, hep C who initially came in to [facility] [place] [facility] secondary to suicide attempt, patient overdosed on Ambien. She is not admitted to inpatient psychiatry and for further evaluation. Consulted for assistance with medical management. Suicidal attempt, depression, anxiety -Managed by psychiatry team Aspiration pneumonia COPD, not in exacerbation -Diagnosed at [facility] and patient was placed on clindamycin -Patient has diarrhea on clindamycin use with abdominal pain cramping, nausea , vomiting -DC clindamycin for now. Send stool for C. difficile - no more diarrhea -Flagyl 500 mg 3 times daily for aspiration pneumonia coverage and possible C. difficile -Symbicort twice daily, Tiotropium daily, albuterol inhaler as needed -Monitor respiratory status. On RA breathing better -No diarrhea HTN -Continue home medication -Monitor BP trend Osteoarthritis Chronic pain Neuropathy -Suspect patient does not have rheumatoid arthritis as she was never diagnosed by a supervisor microwave, nor she knows of any work up done. She was referred to a supervisor microwave but has never went for her appointment -[place] 5/325mg every 8 hours as needed for pain. -Patient she will not be getting any prescription for pain when she goes home she has some pain medications at home. -Gabapentin 300 mg 3 times daily -Improved Hypothyroidism -Resume levothyroxine Tobacco abuse -Counseling. Nicotine patch Hep C -Follow-up with gastroenterology or hepatology as an outpatient. Acute kidney Injury -Possibly related to medication overdose -Monitor renal indicis. Avoid nephrotoxins. -Improved DVT prop early ambulation Stable from Hospitalist standpoint. We will sign off. Reconsult as needed. Follow-up with PCP, complete antibiotic and gastroenterology for treatment of hep C Alejandra Allen Aug 08, 2017 15:12
[2017-08-08 19:48] VITALS: BP 133/90; PULSE 84; RESP 18; TEMP 98.1; O2SAT 96
[2017-08-08] MEDS: REMOVE OLD NICODERM (NICOTINE) PATCH T-DERMAL SCH (21:00)
[2017-08-08] MEDS: diphenhydrAMINE HCL 50 MG CAP PO PRN (21:10)
[2017-08-09] MEDS: ACETAMINOPHEN/HYDROcodone 325 MG/5 MG TAB PO PRN ×4 (01:51→20:55)
[2017-08-09 06:00] VITALS: BP 149/98; PULSE 110; RESP 18; TEMP 98; O2SAT 100
[2017-08-09] MEDS: LEVOTHYROXINE SODIUM 50 MCG TAB PO SCH (06:03)
[2017-08-09] MEDS: metroNIDAZOLE 500 MG TAB PO SCH ×3 (06:03→22:05)
[2017-08-09] MEDS: HYDROCHLOROTHIAZIDE 25 MG TAB PO SCH (08:42)
[2017-08-09] MEDS: DULoxetine HCl DR 60 MG CAP PO SCH (08:42)
[2017-08-09] MEDS: lamoTRIgine 100 MG TAB PO SCH ×2 (08:42→20:53)
[2017-08-09] MEDS: NICOTINE 21 MG/24 HR PATCH T-DERMAL SCH (08:42)
[2017-08-09] MEDS: GABAPENTIN 300 MG CAP PO SCH ×3 (08:43→17:17)
[2017-08-09] MEDS: ATORVASTATIN 10 MG TAB PO SCH (08:43)
[2017-08-09] MEDS: LURASIDONE 80 MG TAB PO SCH (08:43)
[2017-08-09] MEDS: LORazepam 1 MG TAB PO PRN ×2 (08:43→17:17)
[2017-08-09] MEDS: TIOTROPIUM BROMIDE 18 MCG INH INH SCH (08:44)
[2017-08-09] MEDS: BUDESONIDE-FORMOTEROL 160/4.5 MCG INHALER INH SCH ×2 (08:44→20:51)
--- NOTE | 2017-08-09 10:42 | PD.TTN ---
Patient Problems 1. Discharge planning 2. Medication compliance 3. Knowledge deficit 4. Lack of coping skills Progress Toward Goals Provider Present: Dr. Janine Haddad Provider Input: Dr. Noriega's treatment team met to discuss patient's medication, discharge and treatment plan. Patient is attention seeking, confused and disorganized. Continue with treatment Nurse(s) Input: Patient's nurse reports patient is anxious, attention seeking, denies suicidal or homicidal Psychiatric Counselors Present: Bernadette John [facility] Psych Therapist Input: Patient presents intrusive, attention seeking, confused symptomatic, tearful, affect labile. Patient is medication compliant. Will continue to treat. Group Spec/RT/OT/ESCAMILLA Present: ANDI Burgos Group Spec/RT/OT/ESCAMILLA Input: Patient will attend groups but does not participate Bernadette John [facility] Aug 09, 2017 10:42
--- NOTE | 2017-08-09 17:22 | HHI.PYPN ---
Subjective Remarks Patient seen for follow-up, chart reviewed. Discussion nursing staff reported the patient was somewhat demanding of medications in the morning but was able to be redirected. Patient was found sitting in hospital bed noted B, cooperative. Patient states that the weekend went well, reports having visited by the boyfriend and planning to be discharged back to be with him. Patient denies any perceptual disturbances or delusions. Patient states that early this morning she had upset if she was requesting medications and when I given to her in a timely fashion. Review of Systems Except as stated in HPI: all other systems reviewed are Neg Mental Status Examination Appearance: Appropriate Consciousness: Alert Orientation: Person, Place, Date/Time Speech: Rapid Language: Adequate Fund of Knowledge: Adequate Attention and Concentration: Easily Distracted Memory: Impaired Mood: Anxious Affect: Anxious Thought Process & Associations: Other ([place]) Thought Content: Appropriate Hallucination Type: None Delusion Type: None Suicidal Ideation: No (denies today) Suicidal Plan: No Suicidal Intention: No Homicidal Ideation: No Homicidal Plan: No Homicidal Intention: No Insight: Fair Judgment: Impulsive Results Vitals/IOs Vital Signs Date Time Temp Pulse Resp B/P (MAP) Pulse Ox O2 Delivery O2 Flow Rate FiO2 08/09/17 06:00 98.0 110 18 149/98 (115) 100 08/05/17 14:05 Room Air Assessment & Plan Problem List: (1) Bipolar disorder ICD Codes: F31.9 - Bipolar disorder, unspecified Assessment & Plan Patient this time with recent episode of irritability this morning which also part be due to cluster B personality traits. Patient denying any suicide ideations reporting her mood is improved. We will continue to monitor likely discharge tomorrow patient remains consistent with improved mood. Discharge planning in progress. Justification for Cont. Inpt. At risk of further decompensation a lower level of care. Discharge Planning Patient return back to part his residence when psychiatrically stable. Problem Qualifiers (1) Bipolar disorder: Qualified Codes: F31.4 - Bipolar disorder, current episode depressed, severe, without psychotic features David Haddad MD Aug 09, 2017 17:22
[2017-08-09 18:28] VITALS: BP 129/79; PULSE 88; RESP 18; TEMP 98.2; O2SAT 98
[2017-08-09] MEDS: REMOVE OLD NICODERM (NICOTINE) PATCH T-DERMAL SCH (20:54)
[2017-08-10] MEDS: LORazepam 1 MG TAB PO PRN (04:19)
[2017-08-10] MEDS: metroNIDAZOLE 500 MG TAB PO SCH (06:07)
[2017-08-10] MEDS: LEVOTHYROXINE SODIUM 50 MCG TAB PO SCH (06:08)
[2017-08-10] MEDS ORDERED: NEUR300C PO (07:39)
[2017-08-10] MEDS ORDERED: LIPI10TA PO (07:39)
[2017-08-10] MEDS ORDERED: LURA80 PO (07:39)
[2017-08-10] MEDS ORDERED: HYDR25TA5 PO (07:39)
[2017-08-10] MEDS ORDERED: METR-1 PO (07:39)
[2017-08-10] MEDS ORDERED: Budeson-Formot 160-4.5 Mcg Inh INH (07:39)
[2017-08-10] MEDS ORDERED: SPIRCAP INH (07:39)
[2017-08-10] MEDS ORDERED: LEVO50TA4 PO (07:39)
[2017-08-10] MEDS ORDERED: AMLO10TA2 PO (07:39)
[2017-08-10] MEDS ORDERED: CYMB60CA PO (07:39)
[2017-08-10] MEDS ORDERED: Albuterol Hfa Inh INH (07:39)
[2017-08-10] MEDS ORDERED: LAMO100 PO (07:39)
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
[2017-08-10] MEDS: TIOTROPIUM BROMIDE 18 MCG INH INH SCH (08:40)
[2017-08-10] MEDS: BUDESONIDE-FORMOTEROL 160/4.5 MCG INHALER INH SCH (08:40)
[2017-08-10] MEDS: NICOTINE 21 MG/24 HR PATCH T-DERMAL SCH (08:42)
[2017-08-10] MEDS: GABAPENTIN 300 MG CAP PO SCH (08:42)
[2017-08-10] MEDS: lamoTRIgine 100 MG TAB PO SCH (08:42)
[2017-08-10] MEDS: HYDROCHLOROTHIAZIDE 25 MG TAB PO SCH (08:43)
[2017-08-10] MEDS: LURASIDONE 80 MG TAB PO SCH (08:43)
[2017-08-10] MEDS: ATORVASTATIN 10 MG TAB PO SCH (08:43)
[2017-08-10] MEDS: ACETAMINOPHEN/HYDROcodone 325 MG/5 MG TAB PO PRN (08:43)
[2017-08-10] MEDS: DULoxetine HCl DR 60 MG CAP PO SCH (08:43)
[2017-08-10 09:27] LABS: BICARBONATE 28.4 MEQ/L (21.0-32.0); CREATININE 1.27 MG/DL (0.50-1.00)
== END 2017-08-10 11:35 | disposition home or self-care (01) | DRG 885 ==
LOC: NEDAMB 17:53 → NEDA 08-05 15:28 → H260 08-05 16:23
PROVIDERS: ADMIT Student in an Organized Health Care Education/Training Program; ATTEND Student in an Organized Health Care Education/Training Program
DX: F25.9 Schizoaffective disorder, unspecified (principal); J69.0 Pneumonitis due to inhalation of food and vomit; N17.9 Acute kidney failure, unspecified; F31.4 Bipolar disorder, current episode depressed, severe, without psychotic features; I10 Essential (primary) hypertension; J44.9 Chronic obstructive pulmonary disease, unspecified; F17.210 Nicotine dependence, cigarettes, uncomplicated; B19.20 Unspecified viral hepatitis C without hepatic coma; E03.9 Hypothyroidism, unspecified; F12.90 Cannabis use, unspecified, uncomplicated; F41.9 Anxiety disorder, unspecified; M19.90 Unspecified osteoarthritis, unspecified site; G62.9 Polyneuropathy, unspecified; G89.29 Other chronic pain; M54.5 Low back pain; E66.9 Obesity, unspecified; R11.2 Nausea with vomiting, unspecified; Z96.641 Presence of right artificial hip joint; T50.905A Adverse effect of unspecified drugs, medicaments and biological substances, initial encounter; R19.7 Diarrhea, unspecified; Z68.37 Body mass index [BMI] 37.0-37.9, adult; Z88.1 Allergy status to other antibiotic agents; Z91.5 Personal history of self-harm; Z88.8 Allergy status to other drugs, medicaments and biological substances
CPT/HCPCS: 80048; 80053; 80061; 80074; 83036; 85027; 99285; Q0163